=== PATIENT | female | born 1940 | race Caucasian/White ===

== ENCOUNTER 2017-04-26 07:11 | Inpatient (IN) | payer OTHER ==
--- NOTE | 2017-04-26 07:36 | PDOC ---
History of Present Illness <Heidy Yuen - Last Filed: 04/26/17 11:33> - General History Source: EMS, Old Records Exam Limitations: Dementia - History of Present Illness Initial Comments: 04/26/17 11:56 The patient is a 76 year old female, with a significant past medical history of hypertension, diabetes, chronic bronchitis, hypothyroidism, GERD, depression, Alzheimers, Schizophrenia, CAD, and COPD, who presents to the emergency department from [facility] after being found on the floor earlier this morning. Per EMS, patient was found on the floor s/p unwitnessed fall. It is unknown if patient sustained any head trauma or LOC. Per records, patient is on Heparin. Patients history is limited due to clinical condition. Allergies: NKDA PCP: Dr. Loyd <Lance Suarez - Last Filed: 04/26/17 11:57> - General Chief Complaint: Injury Stated Complaint: FALL Time Seen by Provider: 04/26/17 07:36 Past History - Past Medical History COPD: No Dementia: Yes GI Disorders: Yes (gerd,dysphania) HTN: Yes Psychiatric Problems: Yes (major depressive disorder,schizoprenia) Thyroid Disease: Yes (Hypo) - Surgical History Appendectomy: Yes Orthopedic Surgery: Yes (R Hip surgery, type unknown) - Suicide/Smoking/Psychosocial Hx Smoking History: Unknown if ever smoked Have you smoked in the past 12 months: No If you are a former smoker, when did you quit?: 2011 Information on smoking cessation initiated: No Hx Alcohol Use: No Drug/Substance Use Hx: No Substance Use Type: None Hx Substance Use Treatment: No <Heidy Yuen - Last Filed: 04/26/17 11:33> <Lance Suarez - Last Filed: 04/26/17 11:57> - Past Medical History Allergies/Adverse Reactions: Allergies Allergy/AdvReac Type Severity Reaction Status Date / Time No Known Allergies Allergy Verified 04/26/17 07:32 Home Medications: Ambulatory Orders Acetaminophen [Non-Aspirin Pain Relief] 650 mg PO PRN 04/26/17 Diphenhydramine [Benadryl 12.5 MG/5 ML Oral Solution -] 12.5 ml PO DAILY Famotidine 20 mg PO BID 04/26/17 Levothyroxine [Synthroid -] 250 mcg PO DAILY 04/26/17 Mirtazapine 5,000 units SQ BID 04/26/17 Polyethylene Glycol 3350 [Gavilax] 17 gm PO BID 04/26/17 Sennosides [Senna] 8.6 mg PO DAILY 04/26/17 Review of Systems - Review of Systems Able to Perform ROS?: No Comments:: 04/26/17 11:56 Patients history is limited due to clinical condition. <Lance Suarez - Last Filed: 04/26/17 11:57> *Physical Exam - Vital Signs Last Vital Signs Temp Pulse Resp BP Pulse Ox 98.3 F 97 H 18 144/60 100 04/26/17 07:21 04/26/17 07:21 04/26/17 07:21 04/26/17 07:21 04/26/17 07:21 <NassefDiliaa - Last Filed: 04/26/17 11:33> - Vital Signs Last Vital Signs Temp Pulse Resp BP Pulse Ox 98.3 F 97 H 18 144/60 100 04/26/17 07:21 04/26/17 07:21 04/26/17 07:21 04/26/17 07:21 04/26/17 07:21 - Physical Exam Comments: 04/26/17 11:57 GENERAL: Awake and alert, in no acute distress, responds to simple commands HEAD: No signs of trauma EYES: PERRLA, EOMI, sclera anicteric, conjunctiva clear ENT: Auricles normal inspection, nares patent, oropharynx clear without exudates. Moist mucosa NECK: Normal ROM, supple, no lymphadenopathy, JVD, or masses LUNGS: Breath sounds equal, clear to auscultation bilaterally. No wheezes, and no crackles HEART: Regular rate and rhythm, normal S1 and S2, no murmurs, rubs or gallops ABDOMEN: Soft, nontender, normoactive bowel sounds. No guarding, no rebound. No masses EXTREMITIES: contracted, grimaces when palpating hips b/l. 2+ DP pulses b/l BACK: No midline spinal tenderness in cervical/thoracic/lumbar region NEUROLOGICAL: Responds to simple commands, cranial nerves grossly intact SKIN: Warm, Dry, normal turgor, no rashes or lesions noted. <Lance Suarez - Last Filed: 04/26/17 11:57> ED Treatment Course - LABORATORY CBC & Chemistry Diagram: 04/26/17 08:41 04/26/17 08:41 <WilfridDiliajennie - Last Filed: 04/26/17 11:33> - LABORATORY CBC & Chemistry Diagram: 04/26/17 08:41 04/26/17 08:41 - ADDITIONAL ORDERS Additional order review: Laboratory Results 04/26/17 04/26/17 04/26/17 08:50 08:41 08:41 PT with INR 11.10 INR 0.98 PTT (Actin FS) 29.4 Sodium Potassium Chloride Carbon Dioxide Anion Gap BUN Creatinine Creat Clearance w eGFR Random Glucose Calcium Magnesium Total Bilirubin AST ALT Alkaline Phosphatase Creatine Kinase Cancelled Creatine Kinase Index CK-MB (CK-2) Troponin I B-Natriuretic Peptide Total Protein Albumin Blood Type O NEGATIVE Antibody Screen Negative 04/26/17 08:41 PT with INR INR PTT (Actin FS) Sodium 143 Potassium 3.9 Chloride 107 Carbon Dioxide 28 Anion Gap 8 BUN 36 H D Creatinine 0.9 Creat Clearance w eGFR > 60 Random Glucose 142 H D Calcium 9.2 Magnesium 1.8 Total Bilirubin 0.3 D AST 28 D ALT 34 D Alkaline Phosphatase 78 Creatine Kinase 252 H Creatine Kinase Index 1.1 CK-MB (CK-2) 2.999 Troponin I 0.04 B-Natriuretic Peptide 361.22 Total Protein 6.5 Albumin 3.3 L D Blood Type Antibody Screen 04/26/17 08:41 RBC 4.04 MCV 95.5 MCHC 33.0 RDW 12.0 D MPV 8.7 Neutrophils % 91.1 H D Lymphocytes % 2.5 L D Monocytes % 6.1 Eosinophils % 0.1 D Basophils % 0.2 - RADIOLOGY Radiograph Interpretation: 04/26/17 11:25 EXAM: CR Pelvis INTERPRETED BY: Dr. Ray REVIEWED BY: Dr. Yuen IMPRESSION: Displaced, complete subcapital fracture through the right femoral neck with significant impaction and moderate varus angulation. EXAM: CXR INTERPRETED BY: Dr. Wall REVIEWED BY: Dr. Yuen IMPRESSION: No acute pathology. More prominent chronic changes left hemithorax since prior studies of 2016. Old deformity left humerus. For more complete evaluation, further imaging with CT may be of help. EXAM: Head CT INTERPRETED BY: Dr. Sood REVIEWED BY: Dr. Yuen IMPRESSION: No significant interval change. Moderate atrophy and chronic microvascular ischemic changes without evidence of acute intracranial pathology. EXAM: CT Cervical spine INTERPRETED BY: Dr. Sood REVIEWED BY: Dr. Yuen IMPRESSION: The alignment is satisfactory. No gross fracture or subluxation is seen. No jumped facets are identified. <Lance Suarez - Last Filed: 04/26/17 11:57> Medical Decision Making - Medical Decision Making 04/26/17 08:00 76-year-old [facility] resident with multiple medical problems presents to the ED after she was found down on the ground. Vitals are unremarkable. History is difficult to obtain due to patient's advanced age and dementia. Unknown mechanical fall versus syncope. Will do a trauma workup, and obtain labs to evaluate for cardiac etiology of possible syncope. Will likely admit to observation. 04/26/17 11:33 Labs remarkable for mild leukocytosis to 11. BUN is elevated to 36, patient is possibly dehydrated. CTH and CT of the cervical spine with no acute pathology. Chest x-ray with no acute pathology. Pelvis film with right impacted femoral fracture. Dr. Rutledge is currently at the bedside evaluating the patient. The patient has been admitted to Dr. Loyd for further management. Case discussed in detail with admitting physician including history, physical exam and ancillary studies. Admitting physician has assumed care for the patient, will follow all pending diagnostics and will complete the evaluation and treatment. <Heidy Yuen - Last Filed: 04/26/17 11:33> - Medical Decision Making 04/26/17 11:24 First call placed to Dr. Loyd at 11:18. Awaiting call back. Case discussed with Dr. Loyd at 11:24. First call placed to Dr. Merino at 11:20. Awaiting call back Extension: [phone]. <Lance Suarez - Last Filed: 04/26/17 11:57> *DC/Admit/Observation/Transfer - Discharge Dispostion Admit: Yes - Attestations Physician Attestion: 04/26/17 11:36 I, Dr. Heidy Yuen MD, attest that this document has been prepared under my direction and personally reviewed by me in its entirety. I further attest, that it accurately reflects all work, treatment, procedures and medical decision -making performed by [facility]. <Heidy Yuen - Last Filed: 04/26/17 11:33> - Attestations Scribe Attestion: 04/26/17 11:23 Documentation prepared by Lance Suarez, acting as medical imaging tech for Heidy Yuen MD. <Lance Suarez - Last Filed: 04/26/17 11:57> Diagnosis at time of Disposition: Hip fracture - Discharge Dispostion Condition at time of disposition: Stable - Referrals Referrals: Trey Loyd MD [Primary Care Provider] - - Patient Instructions - Post Discharge Activity
[2017-04-26 07:54] VITALS: BMI 21.5
[2017-04-26 09:01] LABS: BASO % 0.2 % (0-2.0); EOS % 0.1 % (0-4.5); HEMATOCRIT 38.5 % (32.4-45.2); HEMOGLOBIN 12.7 GM/dL (10.7-15.3); LYMPH % 2.5 % (8-40); MCH 31.5 pg (25.7-33.7); MEAN CELL VOLUME 95.5 fl (80-96); MEAN PLT VOLUME 8.7 fl (7.5-11.1); MONO % 6.1 % (3.8-10.2); NEUT % 91.1 % (42.8-82.8); PLATELET COUNT 170 K/MM3 (134-434); RBC 4.04 M/mm3 (3.60-5.2)
[2017-04-26 09:21] LABS: INR 0.98 (0.82-1.09); PROTHROMBIN TIME (PATIENT) 11.1 SEC (9.98-11.88)
[2017-04-26 09:24] LABS: ACTIVATED PTT 29.4 SECONDS (26.9-34.4)
[2017-04-26 09:26] LABS: N-TERMINAL BNP 361.22 pg/ml (5-450)
[2017-04-26 10:01] LABS: ALBUMIN 3.3 g/dl (3.4-5.0); BILIRUBIN,TOTAL 0.3 mg/dL (0.2-1.0); BLOOD UREA NITROGEN 36 mg/dL (7-18); CALCIUM 9.2 mg/dL (8.5-10.1); CO2 28 mmol/L (21-32); CREATININE 0.9 mg/dL (0.55-1.02); GLUCOSE,RANDOM 142 mg/dL (74-106); MAGNESIUM 1.8 mg/dL (1.8-2.4); SGOT/AST 28 U/L (15-37); SGPT/ALT 34 U/L (12-78); TOT PROT 6.5 g/dl (6.4-8.2)
[2017-04-26 10:02] LABS: ALK PHOS 78 U/L (45-117)
[2017-04-26 10:21] LABS: ANION GAP 8 (8-16); CHLORIDE 107 mmol/L (98-107); POTASSIUM 3.9 mmol/L (3.5-5.1); SODIUM 143 mmol/L (136-145)
[2017-04-26] MEDS ORDERED: HYDROmorphone HCL CARPU-JECT 2 MG/1 ML DISP.SYRIN IVPUSH PRN (11:25)
[2017-04-26] MEDS ORDERED: PANTOPRAZOLE 40 MG TABLET (FP) PO SCH (11:30)
[2017-04-26] MEDS ORDERED: ACETAMINOPHEN 325 MG TABLET (FP) PO SCH (11:30)
[2017-04-26] MEDS ORDERED: D5-1/2NS+20 MEQ KCL - 20 MEQ/1,000 ML INFUS.BAG IV SCH (11:30)
[2017-04-26] MEDS ORDERED: HYDROmorphone HCL CARPU-JECT 1 MG/1 ML DISP.SYRIN ONE (11:50)
[2017-04-26] MEDS ORDERED: PANTOPRAZOLE 40 MG TABLET (FP) ONE (11:50)
[2017-04-26] MEDS ORDERED: HEPARIN NA (PORCINE) 5,000 UNITS/ML 1ML VIAL ONE (11:50)
--- NOTE | 2017-04-26 11:55 | CONSULT ---
Consult - text type - Consultation Consultation Note: FULL CONSULT DICTATED IMP: DISPLACED RIGHT FEMORAL NECK HIP FX PLAN: --> OR TOMORROW FOR RIGHT MIRZA
[2017-04-26] MEDS: HEPARIN NA (PORCINE) 5,000 UNITS/ML 1ML VIAL SQ SCH ×2 (12:22→22:41)
[2017-04-26] MEDS ORDERED: ACETAMINOPHEN 325 MG TABLET (FP) PO PRN ×2 (12:30→16:58)
[2017-04-26 12:58] LABS: URINE APPEARANCE CLEAR; URINE BILIRUBIN NEGATIVE (NEGATIVE); URINE BLOOD NEGATIVE (NEGATIVE); URINE COLOR YELLOW; URINE GLUCOSE (UA) NEGATIVE (NEGATIVE); URINE KETONE NEGATIVE (NEGATIVE); URINE LEUK ESTERASE NEGATIVE (NEGATIVE); URINE NITRITE NEGATIVE (NEGATIVE); URINE PROTEIN NEGATIVE (NEGATIVE); URINE UROBILINOGEN NEGATIVE mg/dL (0.2-1.0)
--- NOTE | 2017-04-26 13:53 | EKG ---
Test Reason : Blood Pressure : / mmHG Vent. Rate : 111 BPM Atrial Rate : 111 BPM P-R Int : 158 ms QRS Dur : 072 ms QT Int : 328 ms P-R-T Axes : 085 092 067 degrees QTc Int : 446 ms POOR DATA QUALITY, INTERPRETATION MAY BE ADVERSELY AFFECTED SINUS TACHYCARDIA RIGHTWARD AXIS ANTERIOR INFARCT , AGE UNDETERMINED ABNORMAL ECG WHEN COMPARED WITH ECG OF 08-OCT-2015 01:03, NO SIGNIFICANT CHANGE WAS FOUND Confirmed by KRUPA LAYTON MD ([id number]) on 04/26/2017 1:53:24 PM Referred By: Confirmed By:KRUPA LAYTON MD
--- NOTE | 2017-04-26 14:46 | CON.CARD ---
Consult Consult Specialty:: cardiology Referred by:: Evert Reason for Consultation:: Pre-op consultation - History of Present Illness Chief Complaint: Right hip fracture History of Present Illness: The patient is a 76-year-old female, with advanced dementia, senior living resident, diabetes, hypertension, coronary artery disease, COPD/bronchitis, schizophrenia, who was found on the floor (unwitnessed). The patient was found to have a right hip fracture. Surgery is being considered. The patient is supine in no apparent distress. She does not follow commands and does not answer any questions. She is alert. 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: Alzheimer's Cardio/Vascular: Yes: [facility] revealing mild CAD , no stents) Pulmonary: Yes: COPD, Other (left pneumothorax and likely hemothorax with rib fractures) Gastrointestinal: Yes: Other (esophageal food impaction, chart alludes to achalasia but [facility] cannot substantiate this) Endocrine: Yes: Hypothyroidism - Alcohol/Substance Use Hx Alcohol Use: No - Smoking History Smoking history: Former smoker Have you smoked in the past 12 months: No If you are a former smoker, when did you quit?: 2011 - Social History Usual Living Arrangement: With Child ADL: Family Assistance 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 Home Medications - Allergies Allergies/Adverse Reactions: Allergies Allergy/AdvReac Type Severity Reaction Status Date / Time No Known Allergies Allergy Verified 04/26/17 07:32 - Home Medications Home Medications: Ambulatory Orders Acetaminophen [Non-Aspirin Pain Relief] 650 mg PO Q6H PRN 04/26/17 Diphenhydramine [Benadryl 12.5 MG/5 ML Oral Solution -] 12.5 ml PO DAILY PRN Famotidine 20 mg PO BID 04/26/17 Heparin - 5,000 unit SQ BID 04/26/17 Levothyroxine [Synthroid -] 250 mcg PO DAILY 04/26/17 Mirtazapine 7.5 mg PO HS 04/26/17 Polyethylene Glycol 3350 [Gavilax] 17 gm PO BID 04/26/17 Sennosides [Senna] 8.6 mg PO HS 04/26/17 Review of Systems - Review of Systems Constitutional: reports: No Symptoms Eyes: reports: No Symptoms HENT: reports: No Symptoms Neck: reports: No Symptoms Cardiovascular: reports: No Symptoms Respiratory: reports: No Symptoms Gastrointestinal: reports: No Symptoms Genitourinary: reports: No Symptoms Breasts: reports: No Symptoms Reported Musculoskeletal: reports: Other (Right hip fracture) Integumentary: reports: No Symptoms Neurological: reports: No Symptoms Endocrine: reports: No Symptoms Hematology/Lymphatic: reports: No Symptoms Psychiatric: reports: No Symptoms Vital Signs: Vital Signs Temperature 97.8 F 04/26/17 13:58 Pulse Rate 84 04/26/17 13:58 Respiratory Rate 16 04/26/17 13:58 Blood Pressure 145/76 04/26/17 13:58 O2 Sat by Pulse Oximetry (%) 99 04/26/17 12:37 Constitutional: Yes: Well Nourished, No Distress, Calm Eyes: Yes: WNL, Conjunctiva Clear HENT: Yes: WNL, Atraumatic, Normocephalic Neck: Yes: WNL, Supple, Trachea Midline Respiratory: Yes: WNL, Regular, CTA Bilaterally Gastrointestinal: Yes: WNL, Normal Bowel Sounds, Soft Renal/: Yes: WNL Cardiovascular: Yes: WNL, Regular Rate and Rhythm, Tachycardia JVD: No Carotid Bruit: No PMI: Non-Displaced Heart Sounds: Yes: S1, S2 Murmur: Yes: Systolic Murmur, Grade 2 Musculoskeletal: No: WNL (Right hip pain) Extremities: Yes: Other (Right hip pain) Edema: No Peripheral Pulses WNL: Yes Integumentary: Yes: WNL Neurological: Yes: Other (Severe dementia, nonverbal,) - Other Data Labs, Other Data: CBC, BMP 04/26/17 08:41 04/26/17 08:41 INR, PTT INR 0.98 (0.82-1.09) 04/26/17 08:41 Troponin, BNP 04/26/17 04/26/17 08:41 13:23 Troponin I 0.04 0.05 B-Natriuretic Peptide 361.22 Troponin, BNP 04/26/17 04/26/17 08:41 13:23 Troponin I 0.04 0.05 B-Natriuretic Peptide 361.22 Assessment/Plan 76-year-old female, senior living resident, with significant dementia, and multiple medical problems, who was found on the floor, and sustained a right hip fracture. Surgery is being considered. There is no evidence of ischemia nor acute coronary syndrome. No CHF. The ECG shows sinus tachycardia without any acute changes. I believe that the patient is medically optimized for right hip surgery. There is no need for further cardiac workup in preparation for surgery. Please proceed with surgery, as deemed necessary. Do not hesitate to call us PRN.
--- NOTE | 2017-04-26 16:17 | HP ---
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, Dementia Cardiovascular: Yes: CAD ([facility] revealing mild CAD , no stents) Pulmonary: Yes: COPD, Other (left pneumothorax and likely hemothorax with rib fractures) Gastrointestinal: Yes: Other (esophageal food impaction, chart alludes to achalasia but [facility] cannot substantiate this) Endocrine: Yes: Hypothyroidism - Smoking History Smoking history: Former smoker Have you smoked in the past 12 months: No If you are a former smoker, when did you quit?: 2012 - Alcohol/Substance Use Hx Alcohol Use: No - Social History ADL: Family Assistance 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 Home Medications - Allergies Allergies/Adverse Reactions: Allergies Allergy/AdvReac Type Severity Reaction Status Date / Time No Known Allergies Allergy Verified 04/26/17 07:32 - Home Medications Home Medications: Ambulatory Orders Acetaminophen [Non-Aspirin Pain Relief] 650 mg PO Q6H PRN 04/26/17 Diphenhydramine [Benadryl 12.5 MG/5 ML Oral Solution -] 12.5 ml PO DAILY PRN Famotidine 20 mg PO BID 04/26/17 Heparin - 5,000 unit SQ BID 04/26/17 Levothyroxine [Synthroid -] 250 mcg PO DAILY 04/26/17 Mirtazapine 7.5 mg PO HS 04/26/17 Polyethylene Glycol 3350 [Gavilax] 17 gm PO BID 04/26/17 Sennosides [Senna] 8.6 mg PO HS 04/26/17 Review of Systems - Review of Systems Constitutional: reports: No Symptoms Eyes: reports: No Symptoms HENT: reports: No Symptoms Neck: reports: No Symptoms Cardiovascular: reports: No Symptoms Respiratory: reports: No Symptoms Gastrointestinal: reports: No Symptoms Genitourinary: reports: No Symptoms Breasts: reports: No Symptoms Reported Musculoskeletal: reports: Joint Pain Integumentary: reports: No Symptoms Neurological: reports: No Symptoms Endocrine: reports: No Symptoms Hematology/Lymphatic: reports: No Symptoms Psychiatric: reports: No Symptoms Physical Examination Vital Signs: Vital Signs Temperature 97.8 F 04/26/17 13:58 Pulse Rate 84 04/26/17 13:58 Respiratory Rate 16 04/26/17 13:58 Blood Pressure 145/76 04/26/17 13:58 O2 Sat by Pulse Oximetry (%) 99 04/26/17 12:37 Constitutional: Yes: Well Nourished, No Distress, Calm Cardiovascular: Yes: Tachycardia Respiratory: Yes: Regular Gastrointestinal: Yes: Normal Bowel Sounds, Soft Musculoskeletal: Yes: Joint Stiffness Edema: No Peripheral Pulses WNL: Yes Integumentary: Yes: WNL Neurological: Yes: Alert, Confusion, Pre-Existing Deficit Labs: CBC, BMP 04/26/17 08:41 04/26/17 08:41 Imaging - Results X-ray: Report Reviewed Cat Scan: Report Reviewed Problem List - Problems (1) Fall Code(s): W19.XXXA - UNSPECIFIED FALL, INITIAL ENCOUNTER (2) Hip fracture Assessment/Plan: Hip Xray shows : Displaced, complete subcapital fracture through the right femoral neck with significant impaction and moderate varus angulation. -For OR in AM -Cleared by Cardiology -pain management -NPO after midnight -hold heparin after tonights dose Code(s): S72.009A - FRACTURE OF UNSP PART OF NECK OF UNSP FEMUR, INIT (3) Dementia Code(s): F03.90 - UNSPECIFIED DEMENTIA WITHOUT BEHAVIORAL DISTURBANCE Assessment/Plan see problem list
--- NOTE | 2017-04-26 18:32 | CONS ---
DATE OF CONSULTATION: 04/26/2017 Patient is a 76-year-old female, resident of a assisted, with dementia, status post fall in the assisted and complaining of pain in her right hip. The patient has already had a left hip hemiarthroplasty in the past. PHYSICAL EXAMINATION: She has marked increased pain with any passive range of motion of her right hip. The right hip is somewhat shortened in the external rotation position. Some contracture of her right knee of about 15 degrees. Good motion of the ankle and toes. Calf is soft and nontender. X-rays showed displaced right femoral neck fracture. IMPRESSION: Right displaced femoral neck fracture. PLAN: The patient will be booked for a right hip hemiarthroplasty after medical optimization. MACK MEDINA M.D. AMBAR/[id number]
[2017-04-26] MEDS ORDERED: RANITIDINE HCL 150 MG TABLET (FP) PO SCH (22:00)
[2017-04-26] MEDS ORDERED: POLYETHYLENE GLYCOL 3350 119 GM BTL PO SCH (22:00)
[2017-04-26] MEDS ORDERED: MIRTAZAPINE 15 MG TABLET (FP) PO SCH (22:00)
[2017-04-27] MEDS ORDERED: ceFAZolin SODIUM 1 GM VIAL ONE ×2 (07:21→08:51)
[2017-04-27] MEDS ORDERED: MIDAZOLAM HCL 2 MG/2 ML SINGLE DOSE VIAL ONE (08:44)
[2017-04-27] MEDS ORDERED: ceFAZolin SODIUM 1 GM VIAL IVPB ONE (08:51)
[2017-04-27] MEDS ORDERED: PHENYLEPHRINE HCL 10 MG/1 ML SINGLE DOSE VIAL ONE (09:10)
--- NOTE | 2017-04-27 09:49 | OP ---
Operative Note - Note: Operative Date: 04/27/17 Pre-Operative Diagnosis: right hip femoral neck fracture Operation: right hip hemiarthroplasty Implants: Ophelia Accolade-II Bipolar 46mm head, standard neck, #3 femoral stem Surgeon: Zelalem Merino Rn Hemo Dialysis: [facility] Anesthesiologist/ADMISSIONS MANAGER: Tony Watt Anesthesia: Spinal, MAC Specimens Removed: right femoral head Estimated Blood Loss (mls): 75 Drains, Volume Out (mls): 0 Blood Volume Replaced (mls): 0 Fluid Volume Replaced (mls): 700 Operative Report Dictated: Yes
[2017-04-27] MEDS ORDERED: LEVOTHYROXINE PO SCH (10:00)
[2017-04-27] MEDS ORDERED: SENNOSIDES 8.6MG TABLET (FP) PO SCH (10:00)
--- NOTE | 2017-04-27 10:06 | PN ---
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, Physician Chief Complaint: s/p fall, right hip fracture History of Present Illness: patient in the OR right now - Current Medication List Current Medications: Active Medications Acetaminophen (Tylenol -) 650 mg PO Q6H PRN Enoxaparin Sodium (Lovenox -) 30 mg SQ DAILY@0800 [facility] Hydromorphone HCl (Dilaudid Injection -) 0.5 mg IVPUSH Q4H PRN PRN Reason: PAIN Last Admin: 04/26/17 11:50 Dose: 0.5 mg Potassium Chloride/Dextrose/Sod Cl (D5-1/2ns+20 Meq Kcl -) 20 meq in 1,000 mls @ 42 mls/hr IV ASDIR [facility] Last Admin: 04/26/17 13:15 Dose: 42 mls/hr Cefazolin Sodium (Ancef -) 1 gm in 10 mls @ 120 mls/hr IVPUSH Q8H [facility] Stop: 04/28/17 00:04 Levothyroxine Sodium (Synthroid -) 250 mcg PO DAILY [facility] Mirtazapine (Remeron -) 7.5 mg PO HS [facility] Last Admin: 04/26/17 22:41 Dose: 7.5 mg Pantoprazole Sodium (Protonix -) 40 mg PO DAILY [facility] Last Admin: 04/26/17 12:21 Dose: Not Given Polyethylene Glycol (Miralax (For Daily Use) -) 17 gm PO BID [facility] Last Admin: 04/26/17 22:41 Dose: 17 gm Ranitidine HCl (Zantac -) 150 mg PO BID [facility] Last Admin: 04/26/17 22:40 Dose: 150 mg Senna (Senna -) 1 tab PO DAILY [facility] - Objective Vital Signs: Vital Signs Temperature 100.1 F H 04/27/17 06:00 Pulse Rate 95 H 04/27/17 06:00 Respiratory Rate 20 04/27/17 06:00 Blood Pressure 137/74 04/27/17 06:00 O2 Sat by Pulse Oximetry (%) 99 04/26/17 12:37 Labs: CBC, BMP 04/26/17 08:41 04/26/17 08:41 INR, PTT INR 0.98 (0.82-1.09) 04/26/17 08:41 Problem List - Problems (1) Fall Code(s): W19.XXXA - UNSPECIFIED FALL, INITIAL ENCOUNTER (2) Hip fracture Assessment/Plan: Hip Xray shows : Displaced, complete subcapital fracture through the right femoral neck with significant impaction and moderate varus angulation. -in OR -Cleared by Cardiology -pain management Code(s): S72.009A - FRACTURE OF UNSP PART OF NECK OF UNSP FEMUR, INIT (3) Dementia Code(s): F03.90 - UNSPECIFIED DEMENTIA WITHOUT BEHAVIORAL DISTURBANCE (4) S/P hip hemiarthroplasty Assessment/Plan: -right hip -start AC as permitted by Surgery -pain management Code(s): Z96.649 - PRESENCE OF UNSPECIFIED ARTIFICIAL HIP JOINT Assessment/Plan see problem list
[2017-04-27] MEDS ORDERED: HYDROmorphone HCL CARPU-JECT 2 MG/1 ML DISP.SYRIN IVPUSH PRN (10:33)
[2017-04-27] MEDS ORDERED: ACETAMINOPHEN 325 MG TABLET (FP) PO PRN (10:33)
[2017-04-27 10:51] LABS: HEMOGLOBIN 11.5 GM/dL (10.7-15.3); MCH 31.2 pg (25.7-33.7); MCHC 32.8 g/dl (32.0-36.0); MEAN CELL VOLUME 95.2 fl (80-96); MEAN PLT VOLUME 8.7 fl (7.5-11.1); PLATELET COUNT 146 K/MM3 (134-434); RBC 3.68 M/mm3 (3.60-5.2); WHITE BLOOD COUNT 8.2 K/mm3 (4.0-10.0)
[2017-04-27 10:57] LABS: EOS % 0.4 % (0-4.5); LYMPH % 6.1 % (8-40); MONO % 8.6 % (3.8-10.2); NEUT % 84.7 % (42.8-82.8)
[2017-04-27 11:19] LABS: ALBUMIN 2.7 g/dl (3.4-5.0); ANION GAP 6 (8-16); BILIRUBIN,TOTAL 0.4 mg/dL (0.2-1.0); BLOOD UREA NITROGEN 29 mg/dL (7-18); CALCIUM 8.6 mg/dL (8.5-10.1); CHLORIDE 108 mmol/L (98-107); CO2 28 mmol/L (21-32); CREATININE 0.8 mg/dL (0.55-1.02); GLUCOSE,RANDOM 107 mg/dL (74-106); SGOT/AST 25 U/L (15-37); SGPT/ALT 28 U/L (12-78); SODIUM 142 mmol/L (136-145); TOT PROT 5.7 g/dl (6.4-8.2)
[2017-04-27] MEDS: D5-1/2NS+20 MEQ KCL - 20 MEQ/1,000 ML INFUS.BAG IV SCH (11:19)
[2017-04-27 11:20] LABS: ALK PHOS 62 U/L (45-117)
[2017-04-27] MEDS ORDERED: CEFAZOLIN 1 GM PUSH 1 GM/10 ML DISP.SYRIN IVPUSH SCH (16:00)
[2017-04-27] MEDS ORDERED: PT OWN MED DRAWER 7, Y5N ONE (16:27)
[2017-04-27] MEDS: CEFAZOLIN 1 GM PUSH 1 GM/10 ML DISP.SYRIN IVPUSH SCH (16:35)
[2017-04-27] MEDS: MIRTAZAPINE 15 MG TABLET (FP) PO SCH (22:02)
[2017-04-27] MEDS: RANITIDINE HCL 150 MG TABLET (FP) PO SCH (22:02)
[2017-04-27] MEDS: POLYETHYLENE GLYCOL 3350 119 GM BTL PO SCH (22:03)
[2017-04-28] MEDS: CEFAZOLIN 1 GM PUSH 1 GM/10 ML DISP.SYRIN IVPUSH SCH (00:15)
[2017-04-28] MEDS ORDERED: PT OWN MED DRAWER 7, Y5N ONE (01:16)
[2017-04-28] MEDS ORDERED: ENOXAPARIN NA (PORCINE) 30 MG/0.3 ML DISP.SYRIN SQ SCH (08:00)
[2017-04-28] MEDS: ENOXAPARIN NA (PORCINE) 30 MG/0.3 ML DISP.SYRIN SQ SCH ×2 (08:37→11:01)
[2017-04-28 08:44] LABS: HEMATOCRIT 34.3 % (32.4-45.2); HEMOGLOBIN 11.4 GM/dL (10.7-15.3); MCH 31.4 pg (25.7-33.7); MCHC 33.2 g/dl (32.0-36.0); MEAN CELL VOLUME 94.6 fl (80-96); MEAN PLT VOLUME 9.4 fl (7.5-11.1); PLATELET COUNT 147 K/MM3 (134-434); RBC 3.62 M/mm3 (3.60-5.2); RDW 12.3 % (11.6-15.6); WHITE BLOOD COUNT 9.7 K/mm3 (4.0-10.0)
--- NOTE | 2017-04-28 08:48 | SPEC ---
DATE OF OPERATION: 04/27/2017 PREOPERATIVE DIAGNOSIS: Right hip femoral neck fracture. POSTOPERATIVE DIAGNOSIS: Right hip femoral neck fracture. PROCEDURE: Right hip hemiarthroplasty. SURGEON: Zelalem Merino M.D. GEOPHYSICS TEACHER: Ricky Mehta ANESTHESIOLOGIST: Tony Watt MD ANESTHESIA: Spinal anesthesia with sedation. DRAINS: None. COMPLICATIONS: None. SPECIMEN: Right femoral head. BLOOD LOSS: 75 mL. BLOOD GIVEN: None. FLUID REPLACEMENT: 700 mL Plasma-Lyte. This patient is a 76-year-old female with a preoperative diagnosis of a displaced right femoral neck fracture. She also has dementia. She is a marginal ambulator. She is noncompliant with preoperative instructions. The patient and the family understand the potential risks, complications, alternatives, and benefits of surgery versus nonsurgical treatment. The patient and his/her family elected to pursue this procedure. The patient was brought to the operating room, peripheral IV placed, IV sedation given, spinal anesthesia induced, IV sedation was given. The patient was placed into the fracture hip hemiarthroplasty table in the left lateral decubitus position with the right hip up towards the ceiling. Right lower extremity is prepped and draped in sterile fashion and standard posterolateral approach marked out with marking pen. The incision was made with a number 10 scalpel blade. Subcutaneous hemostasis was achieved with a Bovie cautery. Dissection then down through the adipose layers to the lateral fascia. This was incised longitudinally with the Bovie, and the Charnley retractor was placed into the wound. We then put the right leg into position of internal rotation which put tension on the short external rotators. The short external rotators and the posterior capsule were incised with a Bovie cautery. We were then able to dislocate the hip, bringing the broken femoral neck out through the wound. We put on the Ophelia accolade II femoral neck cutting guide using the Bovie to pamela our line and used the oscillating saw to cut the appropriate level. This level was at the level of the lesser trochanter where the fracture line extended to. This piece of bone was removed, and this exposed the femoral head. We were unable to get access to the head, it was so tight, and therefore a T-capsulotomy was made with the Bovie for later repair. This allowed us to gain access to the femoral head. The corkscrew was placed into the femoral head with the mallet and it was taken out. It was a 46-mm head. The area was copiously irrigated and washed out, some small bone fragments removed. The left in place on purpose resection. Next we trialed 46 femoral head. Next, the femoral neck was exposed with the [id number] retractor and the Suzanne retractor and first using a wash box operator the hand reamers and the hand broaches, we put a size 6 femoral broach, it seemed to fit quite well, and there was no rotational instability. The calcar reamer was then placed over the broach, and a standard neck with a 46 head was placed. The hip was reduced; it had excellent suction, stability, leg length, and overall was quite happy with it in all planes. There was no instability, it was difficult to dislocate. We then were able to dislocate it, take out the trial prosthesis, irrigate the canal, and put in the real Aston accolade II number 3 cementless Press-Fit femoral stem. I was able to Press-Fit it with a mallet down to the appropriate depth, this on the standard neck, and a 46 bipolar head was hit on with the mallet over the cris taper, it was held in place. I tried to pull off, I could not. I reduced it; it had excellent reduction, stability in all planes. Leg length again was checked and seemed to be excellent. The area was irrigated and washed out. The capsule was then closed with number 1 Tycron suture. The fascia was then closed with number 1 Tycron suture. Deep adipose layer also closed with number 1 Tycron, 2-0 Vicryl suture used to close the deep dermal layer, and final skin reapproximation was done with a running subcuticular 3-0 V-Loc suture. The area was then washed and dried and covered with Dermabond skin glue and Aquacel dressing. Total operative time was about 45 minutes. Fluid replacement was 1000 mL Plasma-Lyte. Blood loss was 75 mL. The patient was completely stable throughout the case. The patient was brought down out of the lateral decubitus position into the supine position and transferred to a stretcher. X-rays were taken. The patient was brought to the ambulatory recovery room in stable condition. The patient was completely stable throughout the case. There was minimal blood loss. There were no complications. Deepti HUMMEL/[id number]
[2017-04-28 09:11] LABS: ANION GAP 10 (8-16); BLOOD UREA NITROGEN 31 mg/dL (7-18); CALCIUM 8.6 mg/dL (8.5-10.1); CHLORIDE 108 mmol/L (98-107); CO2 25 mmol/L (21-32); CREATININE 0.7 mg/dL (0.55-1.02); GLUCOSE,RANDOM 116 mg/dL (74-106); POTASSIUM 3.6 mmol/L (3.5-5.1); SODIUM 143 mmol/L (136-145)
[2017-04-28] MEDS ORDERED: FLU VACCINE QUAD 60 MCG/0.5 ML (MDV 17-18) IM ONE (10:15)
--- NOTE | 2017-04-28 10:22 | PN ---
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 (short form) - Note 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: POD #1 - s/p right hip hemiarthroplasty under spinal anesthesia. VSS. Pt. doing well, sitting up comfortably in chair. No apparent anesthetic complications noted. Continue current care.
--- NOTE | 2017-04-28 10:29 | PN ---
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 (short form) - Note 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: Ortho Pt seen and examined s/p right hip deb pod #1 Selected Entries 04/28/17 05:31 Temperature 99 F Pulse Rate 88 Respiratory 20 Rate Blood Pressure 133/77 Laboratory Tests 04/28/17 07:00 WBC 9.7 Hgb 11.4 Hct 34.3 Plt Count 147 dressing c/d/i, calf soft, nt nvi a/p PT if able wbat hip precautions dvt ppx pain control d/c planning
--- NOTE | 2017-04-28 10:49 | DS ---
Physical Examination Vital Signs: Vital Signs Temperature 99 F 04/28/17 05:31 Pulse Rate 88 04/28/17 05:31 Respiratory Rate 20 04/28/17 05:31 Blood Pressure 133/77 04/28/17 05:31 O2 Sat by Pulse Oximetry (%) 94 L 04/27/17 21:00 Constitutional: Yes: Well Nourished, No Distress, Calm Cardiovascular: Yes: Regular Rate and Rhythm Respiratory: Yes: Regular Gastrointestinal: Yes: Normal Bowel Sounds, Soft Musculoskeletal: Yes: WNL Extremities: Yes: WNL Edema: No Peripheral Pulses WNL: Yes Neurological: Yes: Alert, Pre-Existing Deficit Psychiatric: Yes: Alert Labs: CBC, BMP 04/28/17 07:00 04/28/17 07:00 Discharge Summary Reason For Visit: FRACTURE OF HIP Current Active Problems Fall (Acute) Hip fracture (Acute) S/P hip hemiarthroplasty (Acute) S/P hip hemiarthroplasty (Acute) S/P total hip arthroplasty (Acute) Hospital Course: The patient is a 76 year old female, with a significant past medical history of hypertension, diabetes, chronic bronchitis, hypothyroidism, GERD, depression, Alzheimers, Schizophrenia, CAD, and COPD, who presents to the emergency department from senior living after being found on the floor earlier this morning. Per EMS, patient was found on the floor s/p unwitnessed fall. It is unknown if patient sustained any head trauma or LOC. Per records, patient is on Heparin. Patients history is limited due to clinical condition. Pre-Operative Diagnosis: right hip femoral neck fracture Operation: right hip hemiarthroplasty Implants: Ophelia Accolade-II Bipolar 46mm head, standard neck, #3 femoral stem Surgeon: Zelalem Merino -Weight bearing as tolerated -hip precautions -dvt prophylaxis Condition: Stable - Instructions Referrals: Trey Loyd MD [Primary Care Provider] - Disposition: RESIDENTIAL FACILITY - Home Medications Comprehensive Discharge Medication List: Ambulatory Orders Acetaminophen [Non-Aspirin Pain Relief] 650 mg PO Q6H PRN 04/26/17 Diphenhydramine [Benadryl 12.5 MG/5 ML Oral Solution -] 12.5 ml PO DAILY PRN Famotidine 20 mg PO BID 04/26/17 Heparin - 5,000 unit SQ BID 04/26/17 Levothyroxine [Synthroid -] 250 mcg PO DAILY 04/26/17 Mirtazapine 7.5 mg PO HS 04/26/17 Polyethylene Glycol 3350 [Gavilax] 17 gm PO BID 04/26/17 Sennosides [Senna] 8.6 mg PO HS 04/26/17 Pantoprazole Sodium [Protonix -] 40 mg PO DAILY tablet.ec 04/28/17 Tramadol HCl 50 mg PO TID PRN #90 tablet MDD 3 04/28/17
[2017-04-28] MEDS: PANTOPRAZOLE 40 MG TABLET (FP) PO SCH (11:02)
[2017-04-28] MEDS: SENNOSIDES 8.6MG TABLET (FP) PO SCH (11:02)
[2017-04-28] MEDS: LEVOTHYROXINE NA 125 MCG TABLET (FP) PO SCH (11:02)
[2017-04-28] MEDS: POLYETHYLENE GLYCOL 3350 119 GM BTL PO SCH ×2 (11:02→22:17)
[2017-04-28] MEDS: RANITIDINE HCL 150 MG TABLET (FP) PO SCH ×2 (11:03→21:49)
[2017-04-28] MEDS: D5-1/2NS+20 MEQ KCL - 20 MEQ/1,000 ML INFUS.BAG IV SCH ×2 (11:03→21:48)
--- NOTE | 2017-04-28 14:48 | PATH ---
Surgical Pathology Report Patient Name: KIMBER WARD [facility]. Rec. #: [id number] /Age/Gender: 1940 (Age: 76) / F Account: [id number] Location: [address] [place] [address]/[facility] Taken: 04/27/2017 Received: 04/27/2017 Reported: 04/28/2017 Physicians: Zelalem Merino M.D. Specimen(s) Received FEMORAL HEAD RIGHT Clinical History Fracture of right hip Final Diagnosis BONE, RIGHT FEMORAL HEAD, REPLACEMENT: BONE WITH INTERSTITIAL HEMORRHAGE CONSISTENT WITH FRACTURE. Electronically Signed Javier Lau M.D. Gross Description Received in formalin, labeled "right femoral head," is a 4.4 x 4.4 x 3.7 cm. femoral head with no femoral neck attached. The margin of resection is red-brown, jagged and hemorrhagic. No areas of eburnation are identified. The articular surface is brody-yellow and focally granular. The underlying trabecular bone is yellow, hard and focally hemorrhagic. A guest service representative section is submitted in one cassette, following decalcification. 04/27/2017 [facility]04/27/2017
[2017-04-28] MEDS: MIRTAZAPINE 15 MG TABLET (FP) PO SCH (21:49)
[2017-04-28] MEDS ORDERED: HYDROmorphone HCL CARPU-JECT 2 MG/1 ML DISP.SYRIN IVPB PRN (21:50)
[2017-04-29] MEDS: LEVOTHYROXINE NA 125 MCG TABLET (FP) PO SCH (06:12)
[2017-04-29 08:06] LABS: HEMATOCRIT 31.9 % (32.4-45.2); HEMOGLOBIN 10.3 GM/dL (10.7-15.3); MCH 30.8 pg (25.7-33.7); MCHC 32.4 g/dl (32.0-36.0); MEAN CELL VOLUME 95.1 fl (80-96); MEAN PLT VOLUME 8.9 fl (7.5-11.1); PLATELET COUNT 160 K/MM3 (134-434); RBC 3.35 M/mm3 (3.60-5.2); RDW 12.3 % (11.6-15.6); WHITE BLOOD COUNT 8.4 K/mm3 (4.0-10.0)
[2017-04-29] MEDS: PANTOPRAZOLE 40 MG TABLET (FP) PO SCH (09:00)
[2017-04-29] MEDS: SENNOSIDES 8.6MG TABLET (FP) PO SCH (09:00)
[2017-04-29] MEDS: ENOXAPARIN NA (PORCINE) 30 MG/0.3 ML DISP.SYRIN SQ SCH (09:00)
[2017-04-29] MEDS: RANITIDINE HCL 150 MG TABLET (FP) PO SCH (09:01)
[2017-04-29] MEDS: POLYETHYLENE GLYCOL 3350 119 GM BTL PO SCH (09:01)
--- NOTE | 2017-04-29 10:08 | DS ---
Physical Examination Vital Signs: Vital Signs Temperature 99.0 F 04/29/17 05:57 Pulse Rate 88 04/29/17 05:57 Respiratory Rate 18 04/29/17 05:57 Blood Pressure 138/76 04/29/17 05:57 O2 Sat by Pulse Oximetry (%) 95 04/28/17 21:00 Cardiovascular: Yes: S1, S2 Respiratory: Yes: Regular, CTA Bilaterally Gastrointestinal: Yes: Normal Bowel Sounds, Soft Labs: CBC, BMP 04/29/17 07:15 04/28/17 07:00 Discharge Summary Reason For Visit: FRACTURE OF HIP Current Active Problems Fall (Acute) Hip fracture (Acute) S/P hip hemiarthroplasty (Acute) S/P hip hemiarthroplasty (Acute) S/P total hip arthroplasty (Acute) Hospital Course: The patient is a 76 year old female, with a significant past medical history of hypertension, diabetes, chronic bronchitis, hypothyroidism, GERD, depression, Alzheimers, Schizophrenia, CAD, and COPD, who presents to the emergency department from skilled nursing after being found on the floor earlier this morning. Per EMS, patient was found on the floor s/p unwitnessed fall. It is unknown if patient sustained any head trauma or LOC. Per records, patient is on Heparin. Patients history is limited due to clinical condition. Pre-Operative Diagnosis: right hip femoral neck fracture Operation: right hip hemiarthroplasty Implants: [place] Accolade-II Bipolar 46mm head, standard neck, #3 femoral stem Surgeon: Zelalem Merino -Weight bearing as tolerated -hip precautions -dvt prophylaxis Condition: Stable - Instructions Referrals: Trey Loyd MD [Primary Care Provider] - Disposition: LONG TERM FACILITY - Home Medications Comprehensive Discharge Medication List: Ambulatory Orders Acetaminophen [Non-Aspirin Pain Relief] 650 mg PO Q6H PRN 04/26/17 Diphenhydramine [Benadryl 12.5 MG/5 ML Oral Solution -] 12.5 ml PO DAILY PRN Famotidine 20 mg PO BID 04/26/17 Heparin - 5,000 unit SQ BID 04/26/17 Levothyroxine [Synthroid -] 250 mcg PO DAILY 04/26/17 Mirtazapine 7.5 mg PO HS 04/26/17 Polyethylene Glycol 3350 [Gavilax] 17 gm PO BID 04/26/17 Sennosides [Senna] 8.6 mg PO HS 04/26/17 Pantoprazole Sodium [Protonix -] 40 mg PO DAILY tablet.ec 04/28/17 Tramadol HCl 50 mg PO TID PRN #90 tablet MDD 3 04/28/17
[2017-04-29 12:32] VITALS: BP 127/57; PULSE 90; TEMP 97.4
== END 2017-04-29 12:05 | DRG 470 ==
LOC: JER 07:11 → JERBED 11:36 → J6S 16:39
PROVIDERS: ADMIT Family Medicine; ATTEND Family Medicine
PROC: 0SRR0JZ Replacement of Right Hip Joint, Femoral Surface with Synthetic Substitute, Open Approach (ICD-10-PCS; principal; 2017-04-27 07:30)
DX: S72.012A Unspecified intracapsular fracture of left femur, initial encounter for closed fracture (principal); F20.89 Other schizophrenia; I10 Essential (primary) hypertension; E11.9 Type 2 diabetes mellitus without complications; E03.9 Hypothyroidism, unspecified; K21.9 Gastro-esophageal reflux disease without esophagitis; F32.89 Other specified depressive episodes; G30.8 Other Alzheimer's disease; F02.80 Dementia in other diseases classified elsewhere, unspecified severity, without behavioral disturbance, psychotic disturbance, mood disturbance, and anxiety; I25.10 Atherosclerotic heart disease of native coronary artery without angina pectoris; J44.9 Chronic obstructive pulmonary disease, unspecified; R49.0 Dysphonia; R00.0 Tachycardia, unspecified; Z87.891 Personal history of nicotine dependence; W18.39XA Other fall on same level, initial encounter; Y93.89 Activity, other specified; Y92.89 Other specified places as the place of occurrence of the external cause; Y99.8 Other external cause status; Z79.84 Long term (current) use of oral hypoglycemic drugs
CPT/HCPCS: 36415; 70450-TC; 71010-TC; 72125-TC; 72170-TC; 73502-TC-RT; 80048; 80053; 81003; 82550; 82553; 83735; 83880; 84484; 85025; 85027; 85610; 85730; 86850; 86900; 86901; 87086; 88305-TC; 88311-TC; 90688; 93005; 93010; 94760; 97116-GP; 97161-GP; 99284-25; G0008; J1644

== ENCOUNTER 2017-06-15 14:04 | Inpatient (IN) | payer OTHER ==
[2017-06-15 14:51] LABS: BASO % 0.3 % (0-2.0); EOS % 3.4 % (0-4.5); HEMATOCRIT 36.9 % (32.4-45.2); HEMOGLOBIN 11.8 GM/dL (10.7-15.3); LYMPH % 18.7 % (8-40); MCH 29.8 pg (25.7-33.7); MCHC 31.9 g/dl (32.0-36.0); MEAN CELL VOLUME 93.5 fl (80-96); MONO % 10.7 % (3.8-10.2); NEUT % 66.9 % (42.8-82.8); PLATELET COUNT 276 K/MM3 (134-434); RBC 3.94 M/mm3 (3.60-5.2); RDW 14.2 % (11.6-15.6); WHITE BLOOD COUNT 5.9 K/mm3 (4.0-10.0)
[2017-06-15] MEDS: SODIUM CHLORIDE 1,000 ML IV SCH (14:56)
--- NOTE | 2017-06-15 15:04 | PDOC ---
History of Present Illness - General History Source: EMS, [facility] Records Exam Limitations: Clinical Condition, Dementia - History of Present Illness Initial Comments: 06/15/17 15:27 The patient is a 76 year old female resident from snf, with a significant past medical history of GERD, COPD, Hypothyroidism, Dementia, R hip fracture, Dementia, Depression who presents to the emergency department with altered mental status today. As per nursing staff, at 13:30, patient suddenly was unable to feed herself and was leaning to the left in her seat. Upon evaluation, patient is a poor historian and is unable to provide history. Patients vital signs significant for 100.3 rectal temperature and 93 HR. Allergies: NKA Past surgical history: Appendectomy Social history: None PCP: Dr. Loyd <Sandra Stanley - Last Filed: 06/15/17 15:26> <Cl Ramos - Last Filed: 06/15/17 18:17> <Valerie Dubois - Last Filed: 06/15/17 19:17> - General Chief Complaint: CVA/TIA Stated Complaint: TIA/CVA Time Seen by Provider: 06/15/17 14:11 Past History <Sandra Stanley - Last Filed: 06/15/17 15:26> - Past Medical History COPD: Yes Dementia: Yes GI Disorders: Yes (gerd,dysphania) HTN: Yes Psychiatric Problems: Yes (major depressive disorder,schizoprenia) Thyroid Disease: Yes (Hypo) - Surgical History Appendectomy: Yes Orthopedic Surgery: Yes (R Hip surgery) - Suicide/Smoking/Psychosocial Hx Smoking History: Unknown if ever smoked Have you smoked in the past 12 months: No If you are a former smoker, when did you quit?: 2011 Information on smoking cessation initiated: No Hx Alcohol Use: No Drug/Substance Use Hx: No Substance Use Type: None Hx Substance Use Treatment: No <lC Ramos - Last Filed: 06/15/17 18:17> <Valerie Dubois - Last Filed: 06/15/17 19:17> - Past Medical History Allergies/Adverse Reactions: Allergies Allergy/AdvReac Type Severity Reaction Status Date / Time No Known Allergies Allergy Verified 04/26/17 07:32 Home Medications: Ambulatory Orders Acetaminophen 650 mg PO Q6H PRN 06/15/17 Diphenhydramine HCl [Benadryl -] 12.5 mg PO DAILY PRN 06/15/17 Famotidine 20 mg PO BID 06/15/17 Heparin - 5,000 unit SQ BID 06/15/17 Levothyroxine [Synthroid -] 250 mcg PO DAILY 06/15/17 Mirtazapine 7.5 mg PO HS 06/15/17 Polyethylene Glycol 3350 [Clearlax] 17 gm PO BID 06/15/17 Sennosides/Docusate Sodium [Senna Laxative Tablet] 2 each PO HS 06/15/17 Tramadol HCl 50 mg PO TID PRN 06/15/17 Review of Systems - Review of Systems Able to Perform ROS?: No (nonverbal) <Cl Ramos - Last Filed: 06/15/17 18:17> *Physical Exam - Vital Signs Last Vital Signs Temp Pulse Resp BP Pulse Ox 100.3 F H 88 20 112/81 98 06/15/17 14:29 06/15/17 14:40 06/15/17 14:09 06/15/17 14:09 06/15/17 14:40 - Physical Exam Comments: 06/15/17 15:27 GENERAL: The patient is awake, alert, and fully oriented, in no acute distress. +Nonverbal HEAD: Normal with no signs of trauma. EYES: Pupils equal, round and reactive to light, extraocular movements intact, sclera anicteric, conjunctiva clear with no pallor. ENT: Ears normal, nares patent, oropharynx clear without exudates. Moist mucous membranes. NECK: Normal range of motion, supple without lymphadenopathy, JVD, or masses. LUNGS: Breath sounds equal. No wheeze/crackles. +Expiratory rhonchi at both bases. HEART: Regular rate and rhythm, normal S1 and S2 without murmur or rub. ABDOMEN: Soft/nontender/nondistended. BS wnl. No guarding or rebound. No palpable masses. No hepatosplenomegaly. EXTREMITIES: Normal range of motion, no edema. No clubbing or cyanosis. No cords, erythema, or tenderness. NEUROLOGICAL: Cranial nerves II through XII grossly intact. Normal speech. PSYCH: Normal mood, normal affect. SKIN: Warm, Dry, normal turgor, no rashes or lesions noted. <Sandra Stanley - Last Filed: 06/15/17 15:26> - Vital Signs Last Vital Signs Temp Pulse Resp BP Pulse Ox 100.3 F H 88 20 112/81 98 06/15/17 14:29 06/15/17 14:40 06/15/17 14:09 06/15/17 14:09 06/15/17 14:40 <Cl Ramos - Last Filed: 06/15/17 18:17> - Vital Signs Last Vital Signs Temp Pulse Resp BP Pulse Ox 100.3 F H 88 20 112/81 98 06/15/17 14:29 06/15/17 14:40 06/15/17 14:09 06/15/17 14:09 06/15/17 14:40 <Valerie Dubois - Last Filed: 06/15/17 19:17> Heart Score/ECG Review #1 ECG reviewed & interpreted by me at: 14:33 General ECG Interpretation: Sinus Rhythm, Normal Rate (95), Normal Intervals ( qtc 432), No acute ischemic changes <Cl Ramos - Last Filed: 06/15/17 18:17> ED Treatment Course - LABORATORY CBC & Chemistry Diagram: 06/15/17 14:32 06/15/17 14:32 - ADDITIONAL ORDERS Additional order review: Laboratory Results 06/15/17 14:32 PT with INR 11.40 INR 1.01 06/15/17 14:32 RBC 3.94 MCV 93.5 MCHC 31.9 L RDW 14.2 D MPV 8.0 D Neutrophils % 66.9 D Lymphocytes % 18.7 D Monocytes % 10.7 H Eosinophils % 3.4 D Basophils % 0.3 D <Sandra Stanley - Last Filed: 06/15/17 15:26> - LABORATORY CBC & Chemistry Diagram: 06/15/17 14:32 06/15/17 14:32 - RADIOLOGY Radiology Studies Ordered: Category Date Time Status HEAD CT (STROKE) [CT] Stat CT Scan 06/15/17 14:11 Completed CHEST X-RAY PORTABLE* [RAD] Stat Radiology 06/15/17 14:11 Ordered <Cl Ramos - Last Filed: 06/15/17 18:17> - LABORATORY CBC & Chemistry Diagram: 06/15/17 14:32 06/15/17 14:32 - ADDITIONAL ORDERS Additional order review: Laboratory Results 06/15/17 06/15/17 06/15/17 17:20 15:23 14:32 PT with INR INR Sodium Potassium Chloride Carbon Dioxide Anion Gap BUN Creatinine Creat Clearance w eGFR Random Glucose Lactic Acid 1.3 Calcium Total Bilirubin AST ALT Alkaline Phosphatase Creatine Kinase Creatine Kinase Index CK-MB (CK-2) Troponin I Total Protein Albumin Triglycerides Cholesterol Total LDL Cholesterol HDL Cholesterol Urine Color Yellow Urine Appearance Turbid Urine pH 5.0 Ur Specific [place] 1.019 Urine Protein 2+ H Urine Glucose (UA) Negative Urine Ketones Negative Urine Blood Negative Urine Nitrite Positive Urine Bilirubin Negative Urine Urobilinogen Negative Ur Leukocyte Esterase 2+ H Urine WBC (Auto) 2684 Urine RBC (Auto) 72 Ur Epithelial Cells Rare Urine Mucus Rare Blood Type O NEGATIVE Antibody Screen Negative 06/15/17 06/15/17 14:32 14:32 PT with INR 11.40 INR 1.01 Sodium 141 Potassium 4.6 Chloride 105 Carbon Dioxide 30 Anion Gap 6 L BUN 30 H Creatinine 0.9 Creat Clearance w eGFR > 60 Random Glucose 108 H Lactic Acid Calcium 9.0 Total Bilirubin 0.2 D AST 28 ALT 36 Alkaline Phosphatase 75 Creatine Kinase 348 H Creatine Kinase Index 1.0 CK-MB (CK-2) 3.775 H Troponin I < 0.02 Total Protein 6.5 Albumin 3.1 L Triglycerides 80 Cholesterol 168 Total LDL Cholesterol 87 HDL Cholesterol 74 H Urine Color Urine Appearance Urine pH Ur Specific [place] Urine Protein Urine Glucose (UA) Urine Ketones Urine Blood Urine Nitrite Urine Bilirubin Urine Urobilinogen Ur Leukocyte Esterase Urine WBC (Auto) Urine RBC (Auto) Ur Epithelial Cells Urine Mucus Blood Type Antibody Screen 06/15/17 14:32 RBC 3.94 MCV 93.5 MCHC 31.9 L RDW 14.2 D MPV 8.0 D Neutrophils % 66.9 D Lymphocytes % 18.7 D Monocytes % 10.7 H Eosinophils % 3.4 D Basophils % 0.3 D - Medications Given in the ED: ED Medications Discontinued Medications Generic Name Dose Route Start Last Admin Trade Name Freq PRN Reason Stop Dose Admin Ceftriaxone Sodium 1 gm/ 50 mls @ 100 mls/hr 06/15/17 18:15 06/15/17 19:01 Dextrose IVPB 06/15/17 18:44 100 mls/hr ONCE ONE Administration <Herchek,Valerie - Last Filed: 06/15/17 19:17> Medical Decision Making - Medical Decision Making 06/15/17 15:03 A portion of this note was documented by scribe services under my direction. I have reviewed the details of the note, within reason, and agree with the documentation with the following case summary and management plan written by me. 76-year-old female with history of dementia sent from snf after witnessed to have decreased activity/altered mental status at 1:15 PM, called and asked possible TIA/CVA, but had nonfocal findings on arrival and was noted to have temperature of 100.3 rectally. Code poe was activated and the patient had a stat CT of the head, but no acute pathology was noted. Presentation is much more consistent with metabolic versus infectious process. Sepsis protocol initiated Antipyretics, IV fluids Reassess, likely admission. 06/15/17 18:17 Labs within normal limits, no leukocytosis, lactate normal. Chest x-ray and CT head showed no acute pathology Urinalysis with 2+ leuk esterase, likely source of patient's fever. Urine culture sent, treated with ceftriaxone. Patient of [facility] admitting for Dr. Mejia. Signout given to [employer], accepted for obs med/surg by Dr. Ahn <Cl Ramos - Last Filed: 06/15/17 18:17> - Medical Decision Making 06/15/17 19:[address] read and reviewed by Dr. Sood shows no evidence of acute intracranial pathology. Chest x-ray, read and reviewed by Dr. Sparks, returns unremarkable <Valerie Dubois - Last Filed: 06/15/17 19:17> *DC/Admit/Observation/Transfer - Attestations Scribe Attestion: 06/15/17 15:27 Documentation prepared by Sandra Stanley, acting as expert medical writer for Cl Ramos MD <Sandra Stanley - Last Filed: 06/15/17 15:26> - Discharge Dispostion Admit: Yes <Cl Ramos - Last Filed: 06/15/17 18:17> - Attestations Scribe Attestion: 06/15/17 19:17 Documentation prepared by Valerie Dubois, acting as expert medical writer for Cl Ramos MD. <Valerie Dubois - Last Filed: 06/15/17 19:17> Diagnosis at time of Disposition: Transient alteration of awareness UTI (urinary tract infection) Qualifiers: Urinary tract infection type: site unspecified Hematuria presence: without hematuria Qualified Code(s): N39.0 - Urinary tract infection, site not specified - Discharge Dispostion Condition at time of disposition: Fair - Referrals Referrals: Trey Loyd MD [Primary Care Provider] - - Patient Instructions - Post Discharge Activity
[2017-06-15 15:06] LABS: INR 1.01 (0.82-1.09); PROTHROMBIN TIME (PATIENT) 11.4 SEC (9.98-11.88)
[2017-06-15 15:28] LABS: ALBUMIN 3.1 g/dl (3.4-5.0); ANION GAP 6 (8-16); BLOOD UREA NITROGEN 30 mg/dL (7-18); CHLORIDE 105 mmol/L (98-107); CO2 30 mmol/L (21-32); GLUCOSE,RANDOM 108 mg/dL (74-106); POTASSIUM 4.6 mmol/L (3.5-5.1); SODIUM 141 mmol/L (136-145)
[2017-06-15 15:32] LABS: ALK PHOS 75 U/L (45-117); BILIRUBIN,TOTAL 0.2 mg/dL (0.2-1.0); CHOLESTEROL 168 mg/dL (50-200); CREATININE 0.9 mg/dL (0.55-1.02); HDL CHOLESTEROL 74 mg/dL (40-60); LDL CHOLESTEROL (ONLY SJRH) 87 mg/dL (5-100); SGOT/AST 28 U/L (15-37); SGPT/ALT 36 U/L (12-78); TOT PROT 6.5 g/dl (6.4-8.2); TRIGLYCERIDES 80 mg/dL (35-160)
--- NOTE | 2017-06-15 15:37 | EKG ---
Test Reason : Blood Pressure : / mmHG Vent. Rate : 095 BPM Atrial Rate : 095 BPM P-R Int : 132 ms QRS Dur : 062 ms QT Int : 344 ms P-R-T Axes : 084 072 064 degrees QTc Int : 432 ms POOR DATA QUALITY, INTERPRETATION MAY BE ADVERSELY AFFECTED NORMAL SINUS RHYTHM NORMAL ECG WHEN COMPARED WITH ECG OF 26-APR-2017 07:30, NO SIGNIFICANT CHANGE WAS FOUND Confirmed by SHELLEY SANFORD, ARUNA ([id number]) on 06/15/2017 3:36:59 PM Referred By: Confirmed By:ARUNA ROSA MD
[2017-06-15 17:36] LABS: URINE APPEARANCE TURBID; URINE BILIRUBIN NEGATIVE (NEGATIVE); URINE BLOOD NEGATIVE (NEGATIVE); URINE COLOR YELLOW; URINE GLUCOSE (UA) NEGATIVE (NEGATIVE); URINE KETONE NEGATIVE (NEGATIVE); URINE NITRITE POSITIVE (NEGATIVE); URINE UROBILINOGEN NEGATIVE mg/dL (0.2-1.0)
[2017-06-15 17:40] LABS: URINE LEUK ESTERASE 2+ (NEGATIVE); URINE PROTEIN 2+ (NEGATIVE)
[2017-06-15] MEDS ORDERED: CEFTRIAXONE 1 GM in DEXTROSE 5%-WATER - 50 ML IVPB ONE (18:15)
[2017-06-15 18:30] LABS: EPI CELLS RARE /HPF (FEW); URINE MUCUS RARE
[2017-06-15] MEDS ORDERED: CEFTRIAXONE 2 GM/100 ML BAG IVPB ONE (18:57)
--- NOTE | 2017-06-15 20:47 | HP ---
CHIEF COMPLAINT: altered mental status PCP: [facility] HISTORY OF PRESENT ILLNESS: This is a 76 year old female with a past medical history significant for HTN, dementia presented to the ED from [facility] after nursing staff noticed pt not feeding self as per her usual and was leaning to one side in WC. Daughter at bedside during exam. Daughter reports that she does notice a minimal facial droop and that her mom is not as verbal as per her usual. ER course was notable for: (1) CT head with no acute findings (2) U/a c/w UTI (3) rectal temp 100.3 Recent Travel: none PAST MEDICAL HISTORY: GERD, HTN, COPD, hypothyroid, PNA, R hip fx, dementia, depression, schizophrenia PAST SURGICAL HISTORY: right hip ORIF appendectomy Social History: Smokin ppd until a couple of years ago Alcohol: daughter denies Drugs: daughter denies Family History: mother age 93, [place] father 60s, lung CA, was a smoker and drinker sister BrCA sister brain aneurysm brother unkown CA 3 siblings alive and well Allergies No Known Allergies Allergy (Verified 04/26/17 07:32) HOME MEDICATIONS: 3 Medication Instructions Recorded Acetaminophen 650 mg PO Q6H PRN 06/15/17 Diphenhydramine HCl [Benadryl -] 12.5 mg PO DAILY PRN 06/15/17 Famotidine 20 mg PO BID 06/15/17 Heparin - 5,000 unit SQ BID 06/15/17 Levothyroxine [Synthroid -] 250 mcg PO DAILY 06/15/17 Mirtazapine 7.5 mg PO HS 06/15/17 Polyethylene Glycol 3350 [Clearlax] 17 gm PO BID 06/15/17 [Senna Laxative Tablet] 2 each PO HS 06/15/17 Tramadol HCl 50 mg PO TID PRN 06/15/17 REVIEW OF SYSTEMS CONSTITUTIONAL: Present: generalized weakness, malaise Absent: fever, chills, diaphoresis, loss of appetite, weight change HEENT: Absent: rhinorrhea, nasal congestion, throat pain, throat swelling, difficulty swallowing, mouth swelling, ear pain, eye pain, visual changes CARDIOVASCULAR: Absent: chest pain, syncope, palpitations, irregular heart rate, lightheadedness , peripheral edema RESPIRATORY: Absent: cough, shortness of breath, dyspnea with exertion, orthopnea, wheezing, stridor, hemoptysis GASTROINTESTINAL: Absent: abdominal pain, abdominal distension, nausea, vomiting, diarrhea, constipation, melena, hematochezia GENITOURINARY: Absent: dysuria, frequency, urgency, hesitancy, hematuria, flank pain, genital pain MUSCULOSKELETAL: Absent: myalgia, arthralgia, joint swelling, back pain, neck pain SKIN: Absent: rash, itching, pallor HEMATOLOGIC/IMMUNOLOGIC: Absent: easy bleeding, easy bruising, lymphadenopathy, frequent infections ENDOCRINE: Absent: unexplained weight gain, unexplained weight loss, heat intolerance, cold intolerance NEUROLOGIC: Present: mental status changes Absent: headache, focal weakness or paresthesias, dizziness, unsteady gait, seizure, bladder or bowel incontinence PSYCHIATRIC: Absent: anxiety, depression, suicidal or homicidal ideation, hallucinations. PHYSICAL EXAMINATION Vital Signs - 24 hr 3 06/15/17 06/15/17 06/15/17 14:09 14:29 14:40 Temperature 100.3 F H Pulse Rate 93 H 88 Respiratory 20 Rate Blood Pressure 112/81 O2 Sat by Pulse 99 98 Oximetry (%) GENERAL: Awake, alert, and answers yes/no questions sometimes, in no acute distress. Pt does not reliably follow commands for exam. HEAD: Normal with no signs of trauma. EYES: Pupils equal, round and reactive to light, extraocular movements appear to be intact, sclera anicteric, conjunctiva clear. left eyelid drooping, not fully open EARS, NOSE, THROAT: Ears normal, nares patent, oropharynx clear without exudates. Moist mucous membranes. mild left facial droop noted NECK: Normal range of motion, supple without lymphadenopathy, JVD, or masses. LUNGS: Breath sounds equal, clear to auscultation bilaterally. No wheezes, and no crackles. No accessory muscle use. HEART: Regular rate and rhythm, normal S1 and S2 without murmur, rub or gallop. ABDOMEN: Soft, nontender, not distended, normoactive bowel sounds, no guarding, no rebound, no masses. No hepatomegaly or splenomegaly. MUSCULOSKELETAL: Normal range of motion at all joints. No bony deformities or tenderness. No CVA tenderness. UPPER EXTREMITIES: 2+ pulses, warm, well-perfused. No cyanosis. No clubbing. No peripheral edema. moves all extremities, unable to reliaby test muscle strength/ weakness LOWER EXTREMITIES: 2+ pulses, warm, well-perfused. No calf tenderness. No peripheral edema. NEUROLOGICAL: Cranial nerves II-XII intact. Normal speech. Normal gait. PSYCHIATRIC: Cooperative. Good eye contact. Appropriate mood and affect. SKIN: Warm, dry, normal turgor, no lesions noted, normal capillary refill. dry, scaly, erythematous rash noted to back Laboratory Results - last 24 hr 3 06/15/17 06/15/17 06/15/17 14:32 14:32 14:32 15:23 WBC 5.9 RBC 3.94 Hgb 11.8 D Hct 36.9 D MCV 93.5 MCH 29.8 MCHC 31.9 L RDW 14.2 D Plt Count 276 D MPV 8.0 D Neutrophils % 66.9 D Lymphocytes % 18.7 D Monocytes % 10.7 H Eosinophils % 3.4 D Basophils % 0.3 D PT with INR 11.40 INR 1.01 Sodium 141 Potassium 4.6 Chloride 105 Carbon Dioxide 30 Anion Gap 6 L BUN 30 H Creatinine 0.9 Creat Clearance w eGFR > 60 Random Glucose 108 H Lactic Acid 1.3 Calcium 9.0 Total Bilirubin 0.2 D AST 28 ALT 36 Alkaline Phosphatase 75 Creatine Kinase 348 H Creatine Kinase Index 1.0 CK-MB (CK-2) 3.775 H Troponin I < 0.02 Total Protein 6.5 Albumin 3.1 L Triglycerides 80 Cholesterol 168 Total LDL Cholesterol 87 HDL Cholesterol 74 H Urine Color Urine Appearance Urine pH Ur Specific [place] Urine Protein Urine Glucose (UA) Urine Ketones Urine Blood Urine Nitrite Urine Bilirubin Urine Urobilinogen Ur Leukocyte Esterase Urine WBC (Auto) Urine RBC (Auto) Ur Epithelial Cells Urine Mucus Blood Type O NEGATIVE Antibody Screen Negative 3 Urine Color Yellow 06/15/17 17:20 Urine Appearance Turbid 06/15/17 17:20 Urine pH 5.0 (5.0-8.0) 06/15/17 17:20 Ur Specific [place] 1.019 (1.001-1.035) 06/15/17 17:20 Urine Protein 2+ (NEGATIVE) H 06/15/17 17:20 Urine Glucose (UA) Negative (NEGATIVE) 06/15/17 17:20 Urine Ketones Negative (NEGATIVE) 06/15/17 17:20 Urine Blood Negative (NEGATIVE) 06/15/17 17:20 Urine Nitrite Positive (NEGATIVE) 06/15/17 17:20 Urine Bilirubin Negative (NEGATIVE) 06/15/17 17:20 Ur Leukocyte Esterase 2+ (NEGATIVE) H 06/15/17 17:20 Urine WBC (Auto) 2684 06/15/17 17:20 Urine RBC (Auto) 72 06/15/17 17:20 Ur Epithelial Cells Rare /HPF (FEW) 06/15/17 17:20 Urine Mucus Rare 06/15/17 17:20 ECG NSR Poor data quality vent rate 95, QTC [address]/T wave changes Radiology Reports CT head without contrast IMPRESSION: No significant interval change or acute intracranial pathology is identified. Reported By: Lyndon Sood MD 06/15/17 1430 CXR portable IMPRESSION: No acute pathology Reported By: Derrick Sparks MD 06/15/17 1549 ASSESSMENT/PLAN: 76yF with PMH GERD, HTN, COPD, hypothyroid, PNA, R hip fx, dementia, depression , schizophrenia presented to the ED after [facility] staff noted altered mental status. Altered mental status r/o CVA/TIA - CT head negative - given mild facial droop and daughter report of pt not as verbal as usual would consider neuro consult but will defer to primary team - BUN elevated will increase IVF to 75cc/hr for now, follow labs in am UTI - cont ceftriaxone daily - follow culture results HTN - on no home medications, BP stable, cont to monitor hypothyroid - cont synthroid, check TSH dementia/depression - cont remeron schizophrenia - pt daughter concerned that prior to rehab, pt was on zyprexa and she appeared overall in better mental and physical condition. Advised daughter decline may be due to hip fracture and overall deterioration during previous hospitalization and may have nothing to do with zyprexa. Advised her to speak with PCP at [facility] DVT PPX - cont heparin 5000u BID FEN - NS @ 75cc/hr - BMP in am - regular puree, nectar thick diet as per [facility] documentation, if any s/s aspiration, obtain swallow eval Dispo: Pt currently requires further observation for management of her emergent medical condition. Visit type - Emergency Visit Emergency Visit: Yes ED Registration Date: 06/15/17 Care time: The patient presented to the Emergency Department on the above date and was hospitalized for further evaluation of their emergent condition. - New Patient This patient is new to me today: Yes Date on this admission: 06/15/17 - Critical Care Critical Care patient: No
[2017-06-15] MEDS ORDERED: ACETAMINOPHEN 325 MG TABLET (FP) PO PRN (21:19)
[2017-06-15] MEDS ORDERED: traMADol HCL 50 MG TABLET PO PRN (21:19)
[2017-06-15 21:36] VITALS: BMI 19.2
[2017-06-15] MEDS: SENNOSIDES 8.6MG TABLET (FP) PO SCH (21:47)
[2017-06-15] MEDS: RANITIDINE HCL 150 MG TABLET (FP) PO SCH (21:47)
[2017-06-15] MEDS: HEPARIN NA (PORCINE) 5,000 UNITS/ML 1ML VIAL SQ SCH (21:48)
[2017-06-15] MEDS: POLYETHYLENE GLYCOL 3350 119 GM BTL PO SCH (21:48)
[2017-06-15] MEDS ORDERED: MIRTAZAPINE 15 MG TABLET (FP) PO SCH (22:00)
[2017-06-16] MEDS ORDERED: LEVOTHYROXINE NA 100 MCG TABLET (FP) PO SCH (07:00)
[2017-06-16 08:44] LABS: BASO % 0.4 % (0-2.0); EOS % 7.4 % (0-4.5); HEMATOCRIT 31.2 % (32.4-45.2); HEMOGLOBIN 10.1 GM/dL (10.7-15.3); MCH 30.1 pg (25.7-33.7); MCHC 32.4 g/dl (32.0-36.0); MEAN CELL VOLUME 92.9 fl (80-96); MONO % 11.2 % (3.8-10.2); PLATELET COUNT 212 K/MM3 (134-434); RBC 3.36 M/mm3 (3.60-5.2); RDW 13.8 % (11.6-15.6); WHITE BLOOD COUNT 4.2 K/mm3 (4.0-10.0)
[2017-06-16 09:10] LABS: ANION GAP 7 (8-16); BLOOD UREA NITROGEN 28 mg/dL (7-18); CALCIUM 8.3 mg/dL (8.5-10.1); CHLORIDE 110 mmol/L (98-107); CO2 27 mmol/L (21-32); CREATININE 0.6 mg/dL (0.55-1.02); GLUCOSE,RANDOM 89 mg/dL (74-106); MAGNESIUM 1.7 mg/dL (1.8-2.4); PHOSPHOROUS 3.2 mg/dL (2.5-4.9); SODIUM 144 mmol/L (136-145)
[2017-06-16] MEDS ORDERED: PT OWN MED DRAWER 7, Y5N ONE (10:56)
[2017-06-16] MEDS: MINERAL OIL/PETROLAT/WATER TOPICAL CREAM 113 GM JAR TP SCH (11:00)
[2017-06-16] MEDS: HEPARIN NA (PORCINE) 5,000 UNITS/ML 1ML VIAL SQ SCH ×2 (11:00→21:19)
[2017-06-16] MEDS: POLYETHYLENE GLYCOL 3350 119 GM BTL PO SCH ×2 (11:01→21:18)
[2017-06-16] MEDS: RANITIDINE HCL 150 MG TABLET (FP) PO SCH ×2 (11:03→21:19)
[2017-06-16] MEDS ORDERED: MAGNESIUM SULF 50% (8.12 MEQ/2 ML-1 GM VIAL) IVPB ONE (14:24)
[2017-06-16] MEDS ORDERED: MAGNESIUM 1GM/D5W - 1 GM/100 ML IVPB IVPB ONE (14:30)
--- NOTE | 2017-06-16 14:30 | PN ---
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, Physician Chief Complaint: admitted from [facility] of leaning to left side and not feeding herself and low grade temp found to have uti on iv abx - Current Medication List Current Medications: Active Medications Acetaminophen (Tylenol -) 650 mg PO Q6H PRN PRN Reason: FEVER Heparin Sodium (Porcine) (Heparin -) 5,000 unit SQ BID [facility] Last Admin: 06/16/17 11:00 Dose: 5,000 unit Sodium Chloride (Normal Saline -) 1,000 mls @ 42 mls/hr IV ASDIR [facility] Last Admin: 06/15/17 14:56 Dose: 42 mls/hr Levothyroxine Sodium (Synthroid -) 200 mcg PO DAILY@0700 [facility] Magnesium Sulfate (Magnesium Sulfate) 1 gm IVPB ONCE ONE Stop: 06/16/17 14:25 Mirtazapine (Remeron -) 7.5 mg PO HS [facility] Last Admin: 06/15/17 21:47 Dose: 7.5 mg Multi-Ingredient Lotion (Eucerin (Small Jar) -) 1 applic TP DAILY [facility] Last Admin: 06/16/17 11:00 Dose: 1 applic Polyethylene Glycol (Miralax (For Daily Use) -) 17 gm PO BID [facility] Last Admin: 06/16/17 11:01 Dose: Not Given Ranitidine HCl (Zantac -) 150 mg PO BID [facility] Last Admin: 06/16/17 11:03 Dose: 150 mg Senna (Senna -) 2 tab PO HS [facility] Last Admin: 06/15/17 21:47 Dose: 2 tab Tramadol HCl (Ultram -) 50 mg PO Q8H PRN PRN Reason: PAIN - Objective Vital Signs: Vital Signs Temperature 97.9 F 06/16/17 09:39 Pulse Rate 90 06/16/17 09:39 Respiratory Rate 18 06/16/17 09:39 Blood Pressure 132/57 06/16/17 09:39 O2 Sat by Pulse Oximetry (%) 95 06/16/17 11:00 Constitutional: Yes: Calm Cardiovascular: Yes: Regular Rate and Rhythm, S1, S2 Respiratory: Yes: CTA Bilaterally Gastrointestinal: Yes: Normal Bowel Sounds, Soft Edema: No Neurological: Yes: Lethargy (sleepy in bed) Labs: CBC, BMP 06/16/17 07:20 06/16/17 07:20 INR, PTT INR 1.01 (0.82-1.09) 06/15/17 14:32 Problem List - Problems (1) Hypomagnesemia Assessment/Plan: repleted Code(s): E83.42 - HYPOMAGNESEMIA (2) UTI (urinary tract infection) Assessment/Plan: iv abx awaiting cultures maintain iv fluids Code(s): N39.0 - URINARY TRACT INFECTION, SITE NOT SPECIFIED Qualifiers: Urinary tract infection type: site unspecified Hematuria presence: without hematuria Qualified Code(s): N39.0 - Urinary tract infection, site not specified (3) Altered mental status, unspecified Assessment/Plan: neuro eval synthroid dose decreased given low tsh Code(s): R41.82 - ALTERED MENTAL STATUS, UNSPECIFIED Qualifiers: Altered mental status type: transient alteration of awareness Qualified Code(s): R40.4 - Transient alteration of awareness (4) Hypothyroid Assessment/Plan: synthroid dose decreased Code(s): E03.9 - HYPOTHYROIDISM, UNSPECIFIED
[2017-06-16] MEDS: SODIUM CHLORIDE 1,000 ML IV SCH (15:55)
--- NOTE | 2017-06-16 18:01 | CON.PSY ---
Psychiatry Consult Chief Complaint: Patient seen for drooling? Symptoms: reports: Memory Impairment - Previous Psychiatric Treatment Outpatient: None Inpatient: None - Previous Substance Abuse Treatment Outpatient: None Inpatient: None - Current Medications Current Medications: Active Medications Acetaminophen (Tylenol -) 650 mg PO Q6H PRN PRN Reason: FEVER Heparin Sodium (Porcine) (Heparin -) 5,000 unit SQ BID [facility] Last Admin: 06/16/17 11:00 Dose: 5,000 unit Sodium Chloride (Normal Saline -) 1,000 mls @ 42 mls/hr IV ASDIR [facility] Last Admin: 06/16/17 15:55 Dose: 42 mls/hr Levothyroxine Sodium (Synthroid -) 200 mcg PO DAILY@0700 [facility] Multi-Ingredient Lotion (Eucerin (Small Jar) -) 1 applic TP DAILY [facility] Last Admin: 06/16/17 11:00 Dose: 1 applic Polyethylene Glycol (Miralax (For Daily Use) -) 17 gm PO BID [facility] Last Admin: 06/16/17 11:01 Dose: Not Given Ranitidine HCl (Zantac -) 150 mg PO BID [facility] Last Admin: 06/16/17 11:03 Dose: 150 mg Senna (Senna -) 2 tab PO HS [facility] Last Admin: 06/15/17 21:47 Dose: 2 tab Tramadol HCl (Ultram -) 50 mg PO Q8H PRN PRN Reason: PAIN - Allergies Allergies: Allergies Allergy/AdvReac Type Severity Reaction Status Date / Time No Known Allergies Allergy Verified 04/26/17 07:32 - Current Living Status Usual Living Arrangement: Skilled Nursing - Current Mental Status Evaluation Appearance: Disheveled Attitude: Guarded - Affect Affect: Constrictive Appropriateness: Not Appropriate - Mood Mood: Euthymic - Speech/Language Expressive: Delayed - Psychomotor Activity Psychomotor Activity: Slowed - Thought Process Thought Process: Circumstantial - Thought Content Hallucinations: Absent Delusions: Absent - Self Perception Self Perception: Depersonalization - Cognition Attention: Diminished Memory, Short Term: 0/3 Memory, Remote with Promptin/3 - Concentration Serial Sevens Intact: No Simple Calculations Intact: No - Abstraction Proverb Interpretation: [place] Judgement: Severely Impaired - Insight Insight: Impaired - Impulse Control Impulse Control: Minimally Impaired - Suicidal Ideation Suicidal Ideation: No - Homicidal Ideation Homicidal Ideation: No Assessment/Plan 1) D/C REmeron.
[2017-06-16] MEDS ORDERED: CEFTRIAXONE 1 G/50 ML PREMIX 50 ML IVPB SCH (19:00)
[2017-06-16] MEDS ORDERED: CEFTRIAXONE IN IS-OSM DEXTROSE 2 GM/50 ML BAG IVPB SCH (19:00)
[2017-06-16] MEDS: CEFTRIAXONE 1 G/50 ML PREMIX 50 ML IVPB SCH (20:25)
[2017-06-16] MEDS: SENNOSIDES 8.6MG TABLET (FP) PO SCH (21:19)
[2017-06-17] MEDS: LEVOTHYROXINE NA 100 MCG TABLET (FP) PO SCH (06:20)
[2017-06-17 09:03] LABS: CALCIUM 8.3 mg/dL (8.5-10.1); CHLORIDE 110 mmol/L (98-107); POTASSIUM 3.8 mmol/L (3.5-5.1); SODIUM 143 mmol/L (136-145)
[2017-06-17 09:04] LABS: ALBUMIN 2.6 g/dl (3.4-5.0); ANION GAP 5 (8-16); BLOOD UREA NITROGEN 24 mg/dL (7-18); CO2 28 mmol/L (21-32); GLUCOSE,RANDOM 85 mg/dL (74-106)
[2017-06-17 09:11] LABS: ALK PHOS 62 U/L (45-117); BILIRUBIN,TOTAL 0.3 mg/dL (0.2-1.0); CREATININE 0.6 mg/dL (0.55-1.02); SGOT/AST 17 U/L (15-37); SGPT/ALT 26 U/L (12-78); TOT PROT 5.3 g/dl (6.4-8.2)
--- NOTE | 2017-06-17 10:12 | PN ---
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 (short form) - Note 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: ID Consult dictated UTI/ Possible sepsis secondary to UTI Toxic metabolic encephalopathy R/O TIA Pending c/s continue empiric ceftriaxone
[2017-06-17] MEDS: POLYETHYLENE GLYCOL 3350 119 GM BTL PO SCH ×2 (10:15→21:39)
[2017-06-17] MEDS: HEPARIN NA (PORCINE) 5,000 UNITS/ML 1ML VIAL SQ SCH ×2 (10:15→21:39)
[2017-06-17] MEDS: RANITIDINE HCL 150 MG TABLET (FP) PO SCH ×2 (10:15→21:39)
[2017-06-17] MEDS: MINERAL OIL/PETROLAT/WATER TOPICAL CREAM 113 GM JAR TP SCH (10:15)
[2017-06-17] MEDS: CEFTRIAXONE 1 G/50 ML PREMIX 50 ML IVPB SCH (10:15)
--- NOTE | 2017-06-17 11:20 | CONS ---
INFECTIOUS DISEASE CONSULTATION DATE OF CONSULTATION: DATE OF DICTATION: 06/17/2017 REASON FOR CONSULTATION: The patient is a 76-year-old female with a history of dementia, alf resident, evaluated for sepsis. HISTORY OF PRESENT ILLNESS: History was obtained from the chart as she cannot give a history secondary to her dementia. The patient was noted at the alf to have altered mental status. She was unable to feed herself and was noted to be leaning to the left. In addition, family members reported possible left facial weakness. She was transferred to the emergency room where a nj poe was called. A CAT scan of the head was performed and was negative for acute infarct or bleed. Her course was complicated by fever to 100.3. Initial workup showed pyuria. Cultures were obtained, and she was empirically treated with ceftriaxone. The patient is awake, however, is not conversant. She resists exam. She is in no acute distress. Breathing is non-labored. PAST MEDICAL HISTORY: Positive for dementia, gastroesophageal reflux, hypertension, COPD, schizophrenia, hypothyroidism, depression. PAST SURGICAL HISTORY: Status post ORIF of the right hip April 2017, appendectomy. ALLERGIES: No known allergies. MEDICATIONS: Benadryl, Pepcid, Synthroid, tramadol. SOCIAL HISTORY: She is a alf resident, dependent in activities of daily living. She is a former smoker. SYSTEMS REVIEW: Neurologic: As per HPI. Cardiac: Negative chest pain or palpitations. Respiratory: Negative cough or sputum production. Gastrointestinal: Negative vomiting or diarrhea. Genitourinary: As per HPI. LABORATORY DATA: White count 4.2; neutrophils 59, lymphocytes 22, monocytes 11, eosinophils 7; hematocrit 31.2; platelet count 212. BUN 24, creatinine 0.6. Liver enzymes normal. Urinalysis: White cells 2684. Blood and urine cultures are pending. Chest x-ray negative for acute infiltrate. PHYSICAL EXAMINATION: General: She is awake. She is not conversant. Patient is thin. Vital Signs: Temperature 98.0, T-max 100.3; blood pressure 114/95; pulse 101, regular; respirations 18 per minute. HEENT: The sclerae are anicteric. Dry mucous membranes. Heart: Sounds S1, S2. No murmur. Lungs: Clear. Poor inspiratory effort. No rhonchi, rales, or wheezing. Abdomen: Soft. No tenderness elicited. No mass, rebound, or rigidity. No suprapubic or flank tenderness. Extremities: Negative for edema. IMPRESSION: 1. Urinary tract infection/possible sepsis secondary to urinary tract infection. 2. Toxic metabolic encephalopathy. 3. Possible transient ischemic attack. RECOMMENDATION: Await culture results. Empiric antibiotic coverage with ceftriaxone 1 g IV piggyback daily pending sepsis workup. Neurology followup. Will follow. Thank you for the kind referral. JOSELIN JUÁREZ M.D. [id number]
--- NOTE | 2017-06-17 13:21 | PN ---
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, Physician Chief Complaint: AWAKE ALERT NAD THIS IS MY FIRST ENCOUNTER WITH THIS PATIENT - Current Medication List Current Medications: Active Medications Acetaminophen (Tylenol -) 650 mg PO Q6H PRN PRN Reason: FEVER Heparin Sodium (Porcine) (Heparin -) 5,000 unit SQ BID [facility] Last Admin: 06/17/17 10:15 Dose: 5,000 unit Sodium Chloride (Normal Saline -) 1,000 mls @ 42 mls/hr IV ASDIR [facility] Last Admin: 06/16/17 15:55 Dose: 42 mls/hr CEFTRIAXONE 1 G/50 ML PREMIX (Ceftriaxone 1 Gm-D5w Bag) 50 mls @ 100 mls/hr IVPB DAILY [facility] Last Admin: 06/17/17 10:15 Dose: 100 mls/hr Levothyroxine Sodium (Synthroid -) 200 mcg PO DAILY@0700 [facility] Last Admin: 06/17/17 06:20 Dose: 200 mcg Multi-Ingredient Lotion (Eucerin (Small Jar) -) 1 applic TP DAILY [facility] Last Admin: 06/17/17 10:15 Dose: 1 applic Polyethylene Glycol (Miralax (For Daily Use) -) 17 gm PO BID [facility] Last Admin: 06/17/17 10:15 Dose: 17 gm Ranitidine HCl (Zantac -) 150 mg PO BID [facility] Last Admin: 06/17/17 10:15 Dose: 150 mg Senna (Senna -) 2 tab PO HS [facility] Last Admin: 06/16/17 21:19 Dose: 2 tab Tramadol HCl (Ultram -) 50 mg PO Q8H PRN PRN Reason: PAIN - Objective Vital Signs: Vital Signs Temperature 98.0 F 06/17/17 05:37 Pulse Rate 101 H 06/17/17 05:37 Respiratory Rate 18 06/17/17 05:37 Blood Pressure 114/95 06/17/17 05:37 O2 Sat by Pulse Oximetry (%) 96 06/16/17 22:00 Constitutional: Yes: No Distress Eyes: Yes: WNL HENT: Yes: WNL Neck: Yes: WNL Cardiovascular: Yes: WNL Respiratory: Yes: WNL Gastrointestinal: Yes: WNL Genitourinary: Yes: Incontinence Musculoskeletal: Yes: Muscle Weakness Extremities: Yes: WNL Edema: No Peripheral Pulses WNL: Yes Integumentary: Yes: WNL Wound/Incision: Yes: Clean/Dry Neurological: Yes: Confusion ...Motor Strength: LLE, RLE Psychiatric: Yes: Other Labs: CBC, BMP 06/16/17 07:20 06/17/17 07:30 INR, PTT INR 1.01 (0.82-1.09) 06/15/17 14:32 Problem List - Problems (1) Toxic metabolic encephalopathy Code(s): G92 - TOXIC ENCEPHALOPATHY (2) Altered mental status, unspecified Code(s): R41.82 - ALTERED MENTAL STATUS, UNSPECIFIED Qualifiers: Altered mental status type: transient alteration of awareness Qualified Code(s): R40.4 - Transient alteration of awareness (3) Chronic bronchitis Code(s): J42 - UNSPECIFIED CHRONIC BRONCHITIS (4) Dementia Code(s): F03.90 - UNSPECIFIED DEMENTIA WITHOUT BEHAVIORAL DISTURBANCE Assessment/Plan IV ABX ID CONSULT AWAIT CULTURES TO RETURN PT EVAL
[2017-06-17] MEDS: SODIUM CHLORIDE 1,000 ML IV SCH (13:30)
--- NOTE | 2017-06-17 20:16 | CONSULT ---
Consult - text type - Consultation Consultation Note: NEUROLOGY CONSULTATION is greatly appreciated: This 76 yo woman is a group home resident with h/o COPD, hypothyroidism, GERD , depression and dementia. Maintained on L-thyroxin, famotidene, benadryl and mirtazepine. Admitted with increased lethargy after slumping over in chair. Found to be febrile with Urine WBC= 2684. Started on ceftriaxone. Seen by ID, Psyche. CT of head (reviewed): Moderate, diffuse atrophy with calcification of intracranial arteries. EXAM: Neck supple. No bruits. Cor reg. Awake, alert. Follows simple commands. Gibberish speech. +Glabella, snout, suck, root, grasps. CN II-XII: Normal. swallows liquid and puree without difficulty. Slightly rigid tone but moves all fours well and symmetrically. Normal reflexes except absent AJ's. Toes downgoing. No obvious dystaxia. Withdraws all 4's to pinch. IMP: Moderately severe, B/L cerebral dysfunction (OMS, Chronic) c/w advanced Alzheimer's. No focality to suggest new CVA. Toxic-Metabolic encephalopathy due to UTI/urosepsis. SUGGEST: Continue antibiotics and hydration. Mobilize OOB to chair for meals. Agree with D/C of mirtazepine. Would also D/C benadryl. Repeat UA to assure sterility prior to return to NH. Consider donepezil 5m PO q AM Thank you very much, Yong Shelton MD
[2017-06-17] MEDS ORDERED: PT OWN MED DRAWER 7, Y5N ONE (20:54)
[2017-06-17] MEDS: SENNOSIDES 8.6MG TABLET (FP) PO SCH (21:39)
[2017-06-18] MEDS: SODIUM CHLORIDE 1,000 ML IV SCH (05:00)
[2017-06-18] MEDS: LEVOTHYROXINE NA 100 MCG TABLET (FP) PO SCH (06:05)
[2017-06-18] MEDS: CEFTRIAXONE 1 G/50 ML PREMIX 50 ML IVPB SCH (09:35)
[2017-06-18] MEDS: RANITIDINE HCL 150 MG TABLET (FP) PO SCH ×2 (09:36→21:19)
[2017-06-18] MEDS: HEPARIN NA (PORCINE) 5,000 UNITS/ML 1ML VIAL SQ SCH ×2 (09:36→21:19)
[2017-06-18] MEDS: POLYETHYLENE GLYCOL 3350 119 GM BTL PO SCH ×2 (09:36→21:20)
[2017-06-18] MEDS: MINERAL OIL/PETROLAT/WATER TOPICAL CREAM 113 GM JAR TP SCH (09:37)
--- NOTE | 2017-06-18 13:07 | PN ---
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, Physician Chief Complaint: ASLEEP AROUSABLE CONFUSED - Current Medication List Current Medications: Active Medications Acetaminophen (Tylenol -) 650 mg PO Q6H PRN PRN Reason: FEVER Heparin Sodium (Porcine) (Heparin -) 5,000 unit SQ BID [facility] Last Admin: 06/18/17 09:36 Dose: 5,000 unit Sodium Chloride (Normal Saline -) 1,000 mls @ 42 mls/hr IV ASDIR [facility] Last Admin: 06/18/17 05:00 Dose: 42 mls/hr CEFTRIAXONE 1 G/50 ML PREMIX (Ceftriaxone 1 Gm-D5w Bag) 50 mls @ 100 mls/hr IVPB DAILY [facility] Last Admin: 06/18/17 09:35 Dose: 100 mls/hr Levothyroxine Sodium (Synthroid -) 200 mcg PO DAILY@0700 [facility] Last Admin: 06/18/17 06:05 Dose: 200 mcg Multi-Ingredient Lotion (Eucerin (Small Jar) -) 1 applic TP DAILY [facility] Last Admin: 06/18/17 09:37 Dose: 1 applic Polyethylene Glycol (Miralax (For Daily Use) -) 17 gm PO BID [facility] Last Admin: 06/18/17 09:36 Dose: 17 gm Ranitidine HCl (Zantac -) 150 mg PO BID [facility] Last Admin: 06/18/17 09:36 Dose: 150 mg Senna (Senna -) 2 tab PO HS [facility] Last Admin: 06/17/17 21:39 Dose: 2 tab Tramadol HCl (Ultram -) 50 mg PO Q8H PRN PRN Reason: PAIN - Objective Vital Signs: Vital Signs Temperature 98.6 F 06/18/17 09:00 Pulse Rate 71 06/18/17 09:00 Respiratory Rate 20 06/18/17 09:00 Blood Pressure 117/65 06/18/17 09:00 O2 Sat by Pulse Oximetry (%) 95 06/18/17 09:00 Constitutional: Yes: Mild Distress Eyes: Yes: WNL HENT: Yes: WNL Neck: Yes: WNL Cardiovascular: Yes: WNL Respiratory: Yes: WNL Gastrointestinal: Yes: WNL Genitourinary: Yes: Incontinence Musculoskeletal: Yes: Muscle Weakness Extremities: Yes: WNL Edema: No Peripheral Pulses WNL: Yes Integumentary: Yes: WNL Wound/Incision: Yes: Clean/Dry Neurological: Yes: Confusion ...Motor Strength: LLE, RLE Psychiatric: Yes: Other Labs: CBC, BMP 06/16/17 07:20 06/17/17 07:30 INR, PTT INR 1.01 (0.82-1.09) 06/15/17 14:32 Problem List - Problems (1) Toxic metabolic encephalopathy Code(s): G92 - TOXIC ENCEPHALOPATHY (2) Altered mental status, unspecified Code(s): R41.82 - ALTERED MENTAL STATUS, UNSPECIFIED Qualifiers: Altered mental status type: transient alteration of awareness Qualified Code(s): R40.4 - Transient alteration of awareness (3) Chronic bronchitis Code(s): J42 - UNSPECIFIED CHRONIC BRONCHITIS (4) Dementia Code(s): F03.90 - UNSPECIFIED DEMENTIA WITHOUT BEHAVIORAL DISTURBANCE Assessment/Plan IV ABX ID CONSULT NEURO EVAL APPRECIATED AWAIT CULTURES TO RETURN PT EVAL
--- NOTE | 2017-06-18 15:26 | PN ---
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 (short form) - Note 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: NEUROLOGY FOLLOW-UP: Pt is more alert but slightly agitated. Staring, writhing leg movt's Gibberish speech. Follows no commands. + glabella, snout, suck. rigid tone. moves all 4s with good strength and symmetrically. IMP: Severe, b/l cerebral dysfunction c/w advanced AD. Toxic-metabolic encephalopathy due to UTI. Improving on antibiotics but may be developing agitation. Suggest: Continue antibiotics and hydration. If Rx of agitation becomes necessary avoid sedative-hypnotics. Try quetiapine 12.5 PO BID PRN and 25 mg QHS. Thank you very much, Yong Shelton MD
[2017-06-18] MEDS ORDERED: DEXTROSE 5%-NORMAL SALINE 1,000 ML IV SCH (21:00)
[2017-06-18] MEDS: SENNOSIDES 8.6MG TABLET (FP) PO SCH (21:19)
[2017-06-19] MEDS: LEVOTHYROXINE NA 100 MCG TABLET (FP) PO SCH (06:10)
[2017-06-19] MEDS ORDERED: PT OWN MED DRAWER 7, Y5N ONE (10:17)
[2017-06-19] MEDS: RANITIDINE HCL 150 MG TABLET (FP) PO SCH ×2 (10:20→22:15)
[2017-06-19] MEDS: HEPARIN NA (PORCINE) 5,000 UNITS/ML 1ML VIAL SQ SCH ×2 (10:20→22:15)
[2017-06-19] MEDS: CEFTRIAXONE 1 G/50 ML PREMIX 50 ML IVPB SCH (10:20)
[2017-06-19] MEDS: POLYETHYLENE GLYCOL 3350 119 GM BTL PO SCH ×2 (10:22→22:15)
--- NOTE | 2017-06-19 14:43 | PN ---
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, Physician Chief Complaint: ASLEEP RESTRAINTS FOR AGITATION - Current Medication List Current Medications: Active Medications Acetaminophen (Tylenol -) 650 mg PO Q6H PRN PRN Reason: FEVER Heparin Sodium (Porcine) (Heparin -) 5,000 unit SQ BID [facility] Last Admin: 06/19/17 10:20 Dose: 5,000 unit CEFTRIAXONE 1 G/50 ML PREMIX (Ceftriaxone 1 Gm-D5w Bag) 50 mls @ 100 mls/hr IVPB DAILY [facility] Last Admin: 06/19/17 10:20 Dose: 100 mls/hr Dextrose/Sodium Chloride (D5-Ns -) 1,000 mls @ 42 mls/hr IV ASDIR [facility] Last Admin: 06/18/17 21:19 Dose: 42 mls/hr Levothyroxine Sodium (Synthroid -) 200 mcg PO DAILY@0700 [facility] Last Admin: 06/19/17 06:10 Dose: 200 mcg Multi-Ingredient Lotion (Eucerin (Small Jar) -) 1 applic TP DAILY [facility] Last Admin: 06/18/17 09:37 Dose: 1 applic Polyethylene Glycol (Miralax (For Daily Use) -) 17 gm PO BID [facility] Last Admin: 06/19/17 10:22 Dose: 17 gm Ranitidine HCl (Zantac -) 150 mg PO BID [facility] Last Admin: 06/19/17 10:20 Dose: 150 mg Senna (Senna -) 2 tab PO [facility] Last Admin: 06/18/17 21:19 Dose: 2 tab - Objective Vital Signs: Vital Signs Temperature 97.8 F 06/19/17 14:00 Pulse Rate 80 06/19/17 14:00 Respiratory Rate 18 06/19/17 14:00 Blood Pressure 122/57 06/19/17 14:00 O2 Sat by Pulse Oximetry (%) 95 06/19/17 12:00 Constitutional: Yes: Mild Distress Eyes: Yes: WNL HENT: Yes: WNL Neck: Yes: WNL Cardiovascular: Yes: WNL Respiratory: Yes: WNL Gastrointestinal: Yes: WNL Genitourinary: Yes: Incontinence Peripheral Pulses WNL: Yes Integumentary: Yes: WNL Wound/Incision: Yes: Clean/Dry Neurological: Yes: Confusion ...Motor Strength: LLE, RLE Psychiatric: Yes: Other Labs: CBC, BMP 06/16/17 07:20 06/17/17 07:30 INR, PTT INR 1.01 (0.82-1.09) 06/15/17 14:32 Problem List - Problems (1) Toxic metabolic encephalopathy Code(s): G92 - TOXIC ENCEPHALOPATHY (2) Altered mental status, unspecified Code(s): R41.82 - ALTERED MENTAL STATUS, UNSPECIFIED Qualifiers: Altered mental status type: transient alteration of awareness Qualified Code(s): R40.4 - Transient alteration of awareness (3) Chronic bronchitis Code(s): J42 - UNSPECIFIED CHRONIC BRONCHITIS (4) Dementia Code(s): F03.90 - UNSPECIFIED DEMENTIA WITHOUT BEHAVIORAL DISTURBANCE Assessment/Plan IV ABX CHANGED TO CEFTIN PO ID CONSULT ZYPREXA NEURO EVAL APPRECIATED AWAIT CULTURES TO RETURN PT EVAL
[2017-06-19] MEDS: SENNOSIDES 8.6MG TABLET (FP) PO SCH (22:15)
[2017-06-20] MEDS: LEVOTHYROXINE NA 100 MCG TABLET (FP) PO SCH (06:22)
[2017-06-20 07:58] LABS: HEMATOCRIT 35.4 % (32.4-45.2); HEMOGLOBIN 11.5 GM/dL (10.7-15.3); MCH 30.1 pg (25.7-33.7); MCHC 32.4 g/dl (32.0-36.0); MEAN CELL VOLUME 92.9 fl (80-96); MEAN PLT VOLUME 8.5 fl (7.5-11.1); PLATELET COUNT 238 K/MM3 (134-434); RBC 3.81 M/mm3 (3.60-5.2); RDW 13.7 % (11.6-15.6); WHITE BLOOD COUNT 4.2 K/mm3 (4.0-10.0)
[2017-06-20 08:10] LABS: ALBUMIN 2.7 g/dl (3.4-5.0); ANION GAP 6 (8-16); BLOOD UREA NITROGEN 17 mg/dL (7-18); CALCIUM 8.8 mg/dL (8.5-10.1); CHLORIDE 109 mmol/L (98-107); CO2 28 mmol/L (21-32); GLUCOSE,RANDOM 85 mg/dL (74-106); POTASSIUM 4.1 mmol/L (3.5-5.1); SGOT/AST 15 U/L (15-37); SGPT/ALT 23 U/L (12-78); SODIUM 143 mmol/L (136-145)
[2017-06-20 08:13] LABS: ALK PHOS 66 U/L (45-117); BILIRUBIN,TOTAL 0.4 mg/dL (0.2-1.0); CREATININE 0.6 mg/dL (0.55-1.02); TOT PROT 5.8 g/dl (6.4-8.2)
[2017-06-20] MEDS ORDERED: CEFUROXIME AXETIL 250 MG TABLET PO SCH (10:00)
[2017-06-20] MEDS: MINERAL OIL/PETROLAT/WATER TOPICAL CREAM 113 GM JAR TP SCH ×2 (10:46→10:47)
[2017-06-20] MEDS: RANITIDINE HCL 150 MG TABLET (FP) PO SCH (10:48)
[2017-06-20] MEDS: HEPARIN NA (PORCINE) 5,000 UNITS/ML 1ML VIAL SQ SCH (10:48)
[2017-06-20] MEDS: POLYETHYLENE GLYCOL 3350 119 GM BTL PO SCH (10:49)
[2017-06-20] MEDS ORDERED: SODIUM CHLORIDE 250 ML IV STA (11:27)
--- NOTE | 2017-06-20 11:35 | RAPID ---
Physical Examination Vital Signs: Vital Signs Temperature 97.5 F L 06/20/17 06:35 Pulse Rate 84 06/20/17 06:35 Respiratory Rate 19 06/20/17 06:35 Blood Pressure 124/62 06/20/17 06:35 O2 Sat by Pulse Oximetry (%) 94 L 06/20/17 04:00 Findings/Remarks: RRP announced overhead around 11:18am for non-responsiveness. Arrived in room found patient to be non-arousable. Per nurse, patient responds to verbal command and gets agitated on sternal rub at baseline. Upon repeated sternal rub , patient became more alert and awake and responded with upper R arm movement. Vitals: BP 100/56, HR 73, Sat. 95 % 2L NC, Temp 98.3F. Constitutional: Yes: Thin, Other (responsive upon repeated sternal rub) Eyes: Yes: Conjunctiva Clear, PERRL HENT: Yes: Atraumatic, Normocephalic Cardiovascular: Yes: Regular Rate and Rhythm Respiratory: Yes: CTA Bilaterally Neurological: Yes: Unresponsive (responsive upon repeated sternal rub) Labs: CBC, BMP 06/20/17 06:30 06/20/17 06:30 Rapid Response - Rapid Response Assessment: Unresponsiveness - No offending medications upon checking - Non-septic - Hypotensive, ordered small bolus of 250ml NS - ABG to r/o acute hypoxemic respiratory failure - CT head ordered by Dr. Mejia Discussed with attending Ford Carson PGY2
[2017-06-20 13:25] LABS: ARTERIAL BLD GAS O2 SATURATION 95.5 % (90-98.9); ARTERIAL BLOOD GAS BASE EXCESS 2.6 meq/l (-2-2); ARTERIAL BLOOD GAS PCO2 39.7 mmHg (35-45); ARTERIAL BLOOD GAS PO2 73.2 mmHg (70-100); ARTERIAL BLOOD GAS pH 7.44 (7.35-7.45)
[2017-06-20 13:36] LABS: ALLENS TEST POSITIVE
[2017-06-20 14:15] VITALS: BP 124/62; PULSE 81; TEMP 98.1
--- NOTE | 2017-06-20 14:22 | DS ---
Physical Examination Vital Signs: Vital Signs Temperature 98.1 F 06/20/17 14:00 Pulse Rate 81 06/20/17 14:00 Respiratory Rate 20 06/20/17 14:00 Blood Pressure 124/62 06/20/17 14:00 O2 Sat by Pulse Oximetry (%) 94 L 06/20/17 04:00 Findings/Remarks: awake, nad Constitutional: Yes: No Distress Eyes: Yes: WNL HENT: Yes: WNL, Other Cardiovascular: Yes: WNL Respiratory: Yes: WNL Gastrointestinal: Yes: WNL Renal/: Yes: Incontinence Musculoskeletal: Yes: Muscle Weakness Extremities: Yes: WNL Edema: No Peripheral Pulses WNL: Yes Integumentary: Yes: WNL Wound/Incision: Yes: Clean/Dry Neurological: Yes: Pre-Existing Deficit, Unsteady Gait ...Motor Strength: LLE, RLE Psychiatric: Yes: Other Labs: CBC, BMP 06/20/17 06:30 06/20/17 06:30 Discharge Summary Reason For Visit: UTI; TRANSIENT ALTERATION OF AWARENESS Current Active Problems Hypomagnesemia (Acute) Toxic metabolic encephalopathy (Acute) Transient alteration of awareness (Acute) UTI (urinary tract infection) (Acute) Procedures: Principal: CT HEAD NO ACUTE CHANGES Hospital Course: ADMITTED FOR AMS, WEAKNESS, WORKED UP NO CVA, BLOOD CX NEGATIVE F/U THYROID PANEL OUTPATIENT Condition: Fair - Instructions Diet, Activity, Other Instructions: CHECK THYROID PANEL IN 1 WEEK DYSPHAGIA DIET Referrals: Trey Loyd MD [Primary Care Provider] - Disposition: [facility] - Home Medications Comprehensive Discharge Medication List: Ambulatory Orders Acetaminophen 650 mg PO Q6H PRN 06/15/17 Diphenhydramine HCl [Benadryl Capsule -] 12.5 mg PO DAILY PRN 06/15/17 Famotidine 20 mg PO BID 06/15/17 Heparin - 5,000 unit SQ BID 06/15/17 Levothyroxine [Synthroid -] 250 mcg PO DAILY 06/15/17 Polyethylene Glycol 3350 [Clearlax] 17 gm PO BID 06/15/17 Sennosides/Docusate Sodium [Senna Laxative Tablet] 2 each PO HS 06/15/17 Tramadol HCl 50 mg PO TID PRN 06/15/17 Cefuroxime Axetil [Ceftin -] 250 mg PO BID #10 tablet 06/20/17 Mineral Oil/Petrolat,Wht/Water [Eucerin (Small Jar) -] 1 applic TP DAILY jar Olanzapine [Zyprexa -] 2.5 mg PO HS #0 tablet 06/20/17
--- NOTE | 2017-06-20 15:56 | PN ---
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, Physician History of Present Illness: Awake; eyes open ; not verbally responsive Afebrile BC no growth - Current Medication List Current Medications: Active Medications Acetaminophen (Tylenol -) 650 mg PO Q6H PRN PRN Reason: FEVER Cefuroxime Axetil (Ceftin -) 250 mg PO BID [facility] Last Admin: 06/20/17 10:49 Dose: 250 mg Heparin Sodium (Porcine) (Heparin -) 5,000 unit SQ BID [facility] Last Admin: 06/20/17 10:48 Dose: 5,000 unit Levothyroxine Sodium (Synthroid -) 200 mcg PO DAILY@0700 [facility] [place] Last Admin: 06/20/17 06:22 Dose: 200 mcg Multi-Ingredient Lotion (Eucerin (Small Jar) -) 1 applic TP DAILY [facility] [place] Last Admin: 06/20/17 10:47 Dose: 1 applic Olanzapine (Zyprexa -) 2.5 mg PO HS [facility] [place] Polyethylene Glycol (Miralax (For Daily Use) -) 17 gm PO BID [facility] [place] Last Admin: 06/20/17 10:49 Dose: 17 gm Ranitidine HCl (Zantac -) 150 mg PO BID [facility] [place] Last Admin: 06/20/17 10:48 Dose: 150 mg Senna (Senna -) [address] [facility] Last Admin: 06/19/17 22:15 Dose: 2 tab - Objective Vital Signs: Vital Signs Temperature 98.1 F 06/20/17 14:00 Pulse Rate 81 06/20/17 14:00 Respiratory Rate 20 06/20/17 14:00 Blood Pressure 124/62 06/20/17 14:00 O2 Sat by Pulse Oximetry (%) 94 L 06/20/17 04:00 Constitutional: Yes: No Distress Eyes: Yes: Conjunctiva Clear Cardiovascular: Yes: Regular Rate and Rhythm, S1, S2 Respiratory: Yes: Diminished Gastrointestinal: Yes: Normal Bowel Sounds, Soft. No: Tenderness Edema: No Labs: CBC, BMP 06/20/17 06:30 06/20/17 06:30 INR, PTT INR 1.01 (0.82-1.09) 06/15/17 14:32 Assessment/Plan UTI Toxic metabolic encephalopathy OBS Agree with po ceftin bid x 5d
[2017-06-20] MEDS ORDERED: OLANZapine 2.5 MG TABLET PO SCH (22:00)
== END 2017-06-20 18:18 | DRG 689 ==
LOC: JER 14:04 → JERBED 18:20 → J6S 19:50 → OBSVTOIN 06-16 14:52
PROVIDERS: ADMIT Internal Medicine; ATTEND Family Medicine
DX: N39.0 Urinary tract infection, site not specified (principal); G92 Toxic encephalopathy; I10 Essential (primary) hypertension; E03.9 Hypothyroidism, unspecified; K21.9 Gastro-esophageal reflux disease without esophagitis; J44.9 Chronic obstructive pulmonary disease, unspecified; F03.90 Unspecified dementia, unspecified severity, without behavioral disturbance, psychotic disturbance, mood disturbance, and anxiety; F32.9 Major depressive disorder, single episode, unspecified; F20.9 Schizophrenia, unspecified; F09 Unspecified mental disorder due to known physiological condition; E83.42 Hypomagnesemia; R41.82 Altered mental status, unspecified; J42 Unspecified chronic bronchitis
CPT/HCPCS: 36415; 36600; 70450-TC; 71045-TC; 80048; 80053; 81003; 81015; 82140; 82465; 82550; 82553; 82803; 82962; 83605; 83718; 83721; 83735; 84100; 84443; 84478; 84484; 85025; 85027; 85610; 86850; 86900; 86901; 87040; 87086; 87186; 93005; 93010; 97116-GP; 97161-GP; 99285-25; G0378; J1644

== ENCOUNTER 2017-08-16 10:17 | Emergency (ER) | payer OTHER ==
--- NOTE | 2017-08-16 10:31 | PDOC ---
History of Present Illness - General History Source: Care Provider, Old Records Exam Limitations: Dementia, Other - History of Present Illness Initial Comments: 08/16/17 10:48 The patient is a 76 year old female, with a significant past medical history of major depressive disorder, schizophrenia, dementia, COPD, GERD, hypertension, and hypothyroidism, who presents to the emergency department sent by PCP Dr. Sweet for evaluation of right lower extremity. Per Dr. Loyd, at 08:00 patient' s nurse noted her right thigh appeared swollen and painful with movement. No witnessed trauma or falls. Per records, no erythema or ecchymosis noted. Patients history is limited due to dementia. Allergies: NKDA Past Surgical History: Right hip replacement. PCP: Dr. Sweet <Lance Suarez - Last Filed: 08/16/17 17:32> - General History Source: Patient Exam Limitations: No Limitations <Jessica Pérez - Last Filed: 08/16/17 18:39> - General Chief Complaint: Injury Stated Complaint: RT HIP FX Time Seen by Provider: 08/16/17 10:23 Past History <Lance Suarez - Last Filed: 08/16/17 17:32> - Past Medical History COPD: Yes Dementia: Yes GI Disorders: Yes (gerd,dysphania) HTN: Yes Psychiatric Problems: Yes (major depressive disorder,schizoprenia) Thyroid Disease: Yes (Hypo) - Surgical History Appendectomy: Yes Orthopedic Surgery: Yes (R Hip surgery) - Suicide/Smoking/Psychosocial Hx Smoking History: Former smoker Have you smoked in the past 12 months: No If you are a former smoker, when did you quit?: 2011 Hx Alcohol Use: No Drug/Substance Use Hx: No Substance Use Type: None Hx Substance Use Treatment: No <Jessica Pérez - Last Filed: 08/16/17 18:39> - Past Medical History Allergies/Adverse Reactions: Allergies Allergy/AdvReac Type Severity Reaction Status Date / Time No Known Allergies Allergy Verified 08/16/17 10:37 Home Medications: Ambulatory Orders Acetaminophen 650 mg PO Q6H PRN 08/16/17 Diphenhydramine [Benadryl Oral Solution -] 12.5 mg PO DAILY PRN 08/16/17 Famotidine 20 mg PO BID 08/16/17 Heparin - 5,000 unit SQ BID 08/16/17 Levothyroxine [Synthroid -] 250 mcg PO DAILY 08/16/17 Loratadine [Claritin] 10 mg PO DAILY 08/16/17 Olanzapine 2.5 mg PO HS 08/16/17 Polyethylene Glycol 3350 [Gavilax] 17 gm PO BID 08/16/17 Sennosides [Senna Laxative] 17.2 mg PO HS 08/16/17 Review of Systems - Review of Systems Able to Perform ROS?: No Comments:: 08/16/17 10:48 Unable to obtain due to history of dementia. <Suarez,Springreedhoangrm - Last Filed: 08/16/17 17:32> *Physical Exam - Physical Exam Comments: 08/16/17 10:49 GENERAL: The patient is in no acute distress. Patient unable to cooperate with exam due to dementia. HEAD: Normal with no signs of trauma. EYES: PERRLA, EOMI, sclera anicteric, conjunctiva clear. ENT: Ears normal, nares patent, oropharynx clear without exudates. Moist mucous membranes. LUNGS: Breath sounds equal, clear to auscultation bilaterally. No wheezes, and no crackles. HEART: Regular rate and rhythm, normal S1 and S2 without murmur, rub or gallop. EXTREMITIES: Normal range of motion, no edema. No clubbing or cyanosis. No erythema, or tenderness. MUSCULOSKELETAL: Back non-tender to palpation, no CVA tenderness SKIN: Well healed surgical scar at right hip. Warm, Dry, normal turgor, no rashes or lesions noted. <aLnce Suarez - Last Filed: 08/16/17 17:32> ED Treatment Course - LABORATORY CBC & Chemistry Diagram: 08/16/17 11:10 08/16/17 11:10 - RADIOLOGY Radiograph Interpretation: 08/16/17 17:32 EXAM: XR Hip and Pelvis INTERPRETED BY: Dr. Ray REVIEWED BY: Dr. Pérez IMPRESSION: S/p bilateral total hip arthroplasties with no acute displaced periprosthetic fracture. Interval retroversion of the right acetabular component and heterotopic bone formation along the medial aspect of the proximal right femur, new since 04/27/17. EXAM: CXR INTERPRETED BY: Dr. Wall REVIEWED BY: Dr. Pérez IMPRESSION: Since the prior study of 06/15/17, again is some scarring or chronic atelectactic change by the left hilum. There is no sign of infiltrate or failre. There is sclerotic knob, normal heart and unfolded aorta. The angles are sharp and the soft tissues are intact. There are degenerative spine and shoulder changes with possible post traumatic change or exotosis by the proximal left humerus. Correlation recommended. EXAM: US/ Duplex Right leg INTERPRETED BY: Dr. Sood REVIEWED BY: Dr. Pérez IMPRESSION: Uncooperative patient limiting this examination. There is no evidence of deep venous thromboses in the right lower extremity. <Lance Suarez - Last Filed: 08/16/17 17:32> - LABORATORY CBC & Chemistry Diagram: 08/16/17 11:10 08/16/17 11:10 <Jessica Pérez - Last Filed: 08/16/17 18:39> Medical Decision Making - Medical Decision Making 08/16/17 10:50 First call placed to Dr. Sweet at 10:48. Awaiting call back. Second call placed to Dr. Sweet at 11:25. Awaiting call back. Case discussed with Dr. Loyd at 12:00. <Lance Suarez - Last Filed: 08/16/17 17:32> - Medical Decision Making Miss Jang is a 76-year-old female with a history of depression, dementia, resident of [facility]. Apparently this morning at approximately 8 AM she appeared uncomfortable. Nursing noted that her right thigh was swollen. Patient was sent to the emergency department for evaluation. Patient is a poor historian and therefore cannot give any historical data. I have contacted Pt PMD and confirmed She did not fall today On exam: she is noted to be laying on her left side, hip and knees are both flexed. Evidence of a right hip replacement in the past. No swelling. No erythema of the skin. No erythema of the lower extremity. 08/16/17 12:25 EKG: Sinus rhythm, rate of 90 bpm, axis is normal, right bundle branch block, no ST elevations, T waves normal. 08/16/17 16:20 Xray not read Pt states she has no pain I am able to palpate the right leg with no seming reaction Pt is able to move her hip and knee 08/16/17 16:21 Laboratory Tests 08/16/17 08/16/17 08/16/17 11:10 11:10 11:10 WBC 6.4 D Hgb 11.8 Hct 35.6 Plt Count 241 Neutrophils % 78.3 D Lymphocytes % 9.3 D INR 1.03 Sodium 141 Potassium 4.3 Chloride 108 H Carbon Dioxide 31 BUN 47 H Creatinine 0.7 Random Glucose 102 Pt will be discharged to fpc Pt hgb stable, unlikely GI bleed Pt dehydrated Needs po hydration Clinical Impression: leg pain, initial presentation Dehydration, initial presentation 08/16/17 18:39 <Jessica Pérez - Last Filed: 08/16/17 18:39> *DC/Admit/Observation/Transfer - Attestations Scribe Attestion: 08/16/17 10:50 Documentation prepared by Lance Suarez, acting as medical education coordinator for Jessica Pérez MD. <Lance Suarez - Last Filed: 08/16/17 17:32> - Discharge Dispostion Admit: No <Jessica Pérez - Last Filed: 08/16/17 18:39> Diagnosis at time of Disposition: Leg pain Qualifiers: Laterality: right Qualified Code(s): M79.604 - Pain in right leg - Discharge Dispostion Disposition: RETIREMENT FACILITY Condition at time of disposition: Stable - Referrals Referrals: Trey Loyd MD [Primary Care Provider] - - Patient Instructions Printed Discharge Instructions: DI for Dehydration -- Adult, DI for Leg Pain
[2017-08-16 11:30] LABS: BASO % 0.2 % (0-2.0); EOS % 1.5 % (0-4.5); HEMATOCRIT 35.6 % (32.4-45.2); HEMOGLOBIN 11.8 GM/dL (10.7-15.3); LYMPH % 9.3 % (8-40); MCH 30.5 pg (25.7-33.7); MCHC 33.2 g/dl (32.0-36.0); MEAN CELL VOLUME 91.9 fl (80-96); MEAN PLT VOLUME 7.8 fl (7.5-11.1); MONO % 10.7 % (3.8-10.2); NEUT % 78.3 % (42.8-82.8); PLATELET COUNT 241 K/MM3 (134-434); RBC 3.88 M/mm3 (3.60-5.2); RDW 14.2 % (11.6-15.6); WHITE BLOOD COUNT 6.4 K/mm3 (4.0-10.0)
[2017-08-16 11:48] LABS: INR 1.03 (0.82-1.09); PROTHROMBIN TIME (PATIENT) 11.6 SEC (9.98-11.88)
[2017-08-16 11:57] LABS: ALBUMIN 2.6 g/dl (3.4-5.0); ALK PHOS 70 U/L (45-117); ANION GAP 2 (8-16); BILIRUBIN,TOTAL 0.3 mg/dL (0.2-1.0); BLOOD UREA NITROGEN 47 mg/dL (7-18); CHLORIDE 108 mmol/L (98-107); CO2 31 mmol/L (21-32); CREATININE 0.7 mg/dL (0.55-1.02); GLUCOSE,RANDOM 102 mg/dL (74-106); POTASSIUM 4.3 mmol/L (3.5-5.1); SGOT/AST 14 U/L (15-37); SGPT/ALT 20 U/L (12-78); SODIUM 141 mmol/L (136-145); TOT PROT 5.9 g/dl (6.4-8.2)
[2017-08-16 12:05] VITALS: TEMP 98.3; BMI 19.2
--- NOTE | 2017-08-16 13:14 | EKG ---
Test Reason : Blood Pressure : / mmHG Vent. Rate : 090 BPM Atrial Rate : 082 BPM P-R Int : 136 ms QRS Dur : 108 ms QT Int : 370 ms P-R-T Axes : 070 082 061 degrees QTc Int : 452 ms SINUS RHYTHM WITH PREMATURE ATRIAL COMPLEXES RIGHT BUNDLE BRANCH BLOCK SEPTAL INFARCT , AGE UNDETERMINED ABNORMAL ECG WHEN COMPARED WITH ECG OF 15-JUN-2017 14:33, PREMATURE ATRIAL COMPLEXES ARE NOW PRESENT RIGHT BUNDLE BRANCH BLOCK IS NOW PRESENT SEPTAL INFARCT IS NOW PRESENT Confirmed by CALIN SANFORD, KRUPA ([id number]) on 08/16/2017 1:14:30 PM Referred By: Confirmed By:KRUPA LAYTON MD
[2017-08-16] MEDS ORDERED: SODIUM CHLORIDE 500 ML IV STA (13:28)
[2017-08-16 14:19] VITALS: BP 138/57; PULSE 80
== END 2017-08-16 18:49 ==
LOC: JER 10:17
DX: M79.604 Pain in right leg (principal); Z87.891 Personal history of nicotine dependence; F20.9 Schizophrenia, unspecified; F32.9 Major depressive disorder, single episode, unspecified; E03.9 Hypothyroidism, unspecified
CPT/HCPCS: 36415; 71045-TC-FY; 73523-TC-FY; 80053; 85025; 85610; 86850; 86900; 86901; 93005; 93010; 93971-TC; 99283-25

== ENCOUNTER 2017-10-06 19:24 | Inpatient (IN) | payer OTHER ==
--- NOTE | 2017-10-06 21:49 | PDOC ---
History of Present Illness <Heidy Yuen - Last Filed: 10/07/17 01:48> - History of Present Illness Initial Comments: 10/07/17 15:12 The patient is a 77 year old female with a history of COPD, Dementia, HTN, Hypothyroidism who presents for evaluation of altered mental status and a contracted right upper extremity. The patient is accompanied by family who assist in providing the history. They note that the patient has been more altered over the past few days and noted a contracted right upper extremity prompting their presentation to the ED for further evaluation. They note that the patient has had multiple bilateral hip fractures which are non-operable over the past few months and are also interested in hospice care. The patient is unable to cooperate with history taking due to her mental status and we are unable to obtain a ROS. <Jaden Jones - Last Filed: 10/07/17 15:26> - General Chief Complaint: Altered Mental Status Stated Complaint: AMS Time Seen by Provider: 10/06/17 21:31 Past History <Heidy Yuen - Last Filed: 10/07/17 01:48> - Past Medical History COPD: Yes Dementia: Yes GI Disorders: Yes (gerd,dysphania) HTN: Yes Psychiatric Problems: Yes (major depressive disorder,schizoprenia) Thyroid Disease: Yes (Hypo) - Surgical History Appendectomy: Yes Orthopedic Surgery: Yes (R Hip surgery) - Suicide/Smoking/Psychosocial Hx Smoking History: Former smoker Have you smoked in the past 12 months: No If you are a former smoker, when did you quit?: 2011 Information on smoking cessation initiated: No Hx Alcohol Use: No Drug/Substance Use Hx: No Substance Use Type: None Hx Substance Use Treatment: No <Jaden Jones - Last Filed: 10/07/17 15:26> - Past Medical History Allergies/Adverse Reactions: Allergies Allergy/AdvReac Type Severity Reaction Status Date / Time No Known Allergies Allergy Verified 08/16/17 10:37 Home Medications: Ambulatory Orders Acetaminophen 650 mg PO Q6H PRN 08/16/17 Diphenhydramine [Benadryl Oral Solution -] 12.5 mg PO DAILY PRN 08/16/17 Famotidine 20 mg PO BID 08/16/17 Heparin - 5,000 unit SQ BID 08/16/17 Levothyroxine [Synthroid -] 200 mcg PO DAILY 08/16/17 Loratadine [Claritin] 10 mg PO DAILY 08/16/17 Olanzapine 2.5 mg PO HS 08/16/17 Polyethylene Glycol 3350 [Gavilax] 17 gm PO BID 08/16/17 Sennosides [Senna Laxative] 17.2 mg PO HS 08/16/17 Guaifenesin [Mucinex] 600 mg PO BID PRN 10/07/17 Review of Systems - Review of Systems Able to Perform ROS?: No (Altered Mental Status) <Jaden Jones - Last Filed: 10/07/17 15:26> *Physical Exam - Vital Signs Last Vital Signs Temp Pulse Resp BP Pulse Ox 99.2 F 95 H 18 126/58 94 L 10/07/17 01:48 10/07/17 01:36 10/07/17 01:36 10/07/17 01:36 10/07/17 01:36 <Heidy Yuen - Last Filed: 10/07/17 01:48> - Vital Signs Last Vital Signs Temp Pulse Resp BP Pulse Ox 99.3 F 89 16 107/50 96 10/06/17 19:35 10/06/17 19:35 10/06/17 19:35 10/06/17 19:35 10/06/17 20:50 - Physical Exam Comments: 10/07/17 15:20 General Appearance: Thin chronically ill appearing female. No Apparent Distress HEENT: No Pharyngeal Erythema, Tonsillar Exudate, Tonsillar Erythema Neck: No Cervical Lymphadenopathy Respiratory/Chest: Lungs Clear, Normal Breath Sounds. No Crackles, Rales, Rhonchi, Wheezing Cardiovascular: Regular Rhythm, Regular Rate. No Murmur, Gallops, Rubs Gastrointestinal/Abdominal: Normal Bowel Sounds, Soft. No Guarding, Rebound, Tenderness Musculoskeletal: No CVA Tenderness Extremity: Contracted Right upper extremity noted on exam. Normal Capillary Refill Integumentary: Normal Color, Dry, Warm Neurologic: Minimally responsive, unable to participate in exam. <Jaden Jones - Last Filed: 10/07/17 15:26> ED Treatment Course - LABORATORY CBC & Chemistry Diagram: 10/06/17 21:45 10/06/17 21:45 - ADDITIONAL ORDERS Additional order review: Laboratory Results 10/07/17 10/06/17 10/06/17 00:50 22:23 21:45 PT with INR INR PTT (Actin FS) VBG pH 7.46 H D POC VBG pCO2 37.6 L POC VBG pO2 71.0 H D Mixed VBG HCO3 26.4 H Sodium Potassium Chloride Carbon Dioxide Anion Gap BUN Creatinine Creat Clearance w eGFR Random Glucose Lactic Acid Calcium Total Bilirubin AST ALT Alkaline Phosphatase Troponin I < 0.02 Total Protein Albumin Urine Color Yellow Urine Appearance Slcloudy Urine pH 5.0 Ur Specific [place] 1.018 Urine Protein Negative Urine Glucose (UA) Negative Urine Ketones Negative Urine Blood Negative Urine Nitrite Negative Urine Bilirubin Negative Urine Urobilinogen Negative Ur Leukocyte Esterase 2+ H Urine WBC (Auto) 49 Urine RBC (Auto) 3 Urine Bacteria Rare Urine Mucus Rare 10/06/17 10/06/17 10/06/17 21:45 21:45 21:45 PT with INR 10.30 INR 0.91 PTT (Actin FS) 27.7 VBG pH POC VBG pCO2 POC VBG pO2 Mixed VBG HCO3 Sodium 138 Potassium 5.0 Chloride 102 Carbon Dioxide 28 Anion Gap 8 BUN 44 H Creatinine 1.3 H Creat Clearance w eGFR 39.61 Random Glucose 94 Lactic Acid 1.6 Calcium 9.0 Total Bilirubin 0.1 L D AST 16 ALT 19 Alkaline Phosphatase 125 H Troponin I Total Protein 6.3 L Albumin 2.8 L Urine Color Urine Appearance Urine pH Ur Specific [place] Urine Protein Urine Glucose (UA) Urine Ketones Urine Blood Urine Nitrite Urine Bilirubin Urine Urobilinogen Ur Leukocyte Esterase Urine WBC (Auto) Urine RBC (Auto) Urine Bacteria Urine Mucus 10/06/17 21:45 RBC 3.97 MCV 91.5 MCHC 32.3 RDW 15.7 H D MPV 8.9 D Neutrophils % 61.2 D Lymphocytes % 25.0 D Monocytes % 10.8 H Eosinophils % 2.5 Basophils % 0.5 <Heidy Yuen - Last Filed: 10/07/17 01:48> - LABORATORY CBC & Chemistry Diagram: 10/07/17 07:00 10/07/17 07:00 - RADIOLOGY Radiology Studies Ordered: Category Date Time Status CHEST X-RAY PORTABLE* [RAD] Stat Radiology 10/06/17 21:42 Ordered <Jaden Jones - Last Filed: 10/07/17 15:26> Medical Decision Making - Medical Decision Making 10/07/17 15:22 The patient is a 77 year old female with a history of COPD, Dementia, HTN, Hypothyroidism who presents for evaluation of altered mental status and a contracted right upper extremity. Differential includes but is not limited to: UTI, Sepsis, Intracranial process, Infectious, Metabolic derangement. Given the patient's history of altered mental status, we will obtain a cbc, cmp, troponin, ekg, chest plain film, ua, blood cultures, head CT to evaluate further for possible etiologies. We will continue to monitor and reassess in the meantime. 10/07/17 15:23 CBC, is unremarkable. Chest plain film is unremarkable. Head CT is unremarkable as read by our radiologist. cmp demonstrates an elevated creatinine to 1.3. The patient will likely require admission for josue and altered mental status. The patient was signed out to the night team pending UA and reassessment. <Jaden Jones - Last Filed: 10/07/17 15:26> *DC/Admit/Observation/Transfer - Discharge Dispostion Decision to Admit order: Yes - Attestations Physician Attestion: 10/07/17 01:54 I, Dr. Heidy Yune MD, attest that this document has been prepared under my direction and personally reviewed by me in its entirety. I further attest, that it accurately reflects all work, treatment, procedures and medical decision -making performed by me. <Heidy Yuen - Last Filed: 10/07/17 01:48> <Jaden Jones - Last Filed: 10/07/17 15:26> Diagnosis at time of Disposition: Altered mental status, UTI (urinary tract infection), FTT (failure to thrive) in adult - Discharge Dispostion Condition at time of disposition: Stable
[2017-10-06 22:33] LABS: VENOUS PC02 37.6 mmHg (38-52); VENOUS PH 7.46 (7.32-7.42)
[2017-10-06 22:33] LABS: BASO % 0.5 % (0-2.0); EOS % 2.5 % (0-4.5); HEMATOCRIT 36.3 % (32.4-45.2); HEMOGLOBIN 11.7 GM/dL (10.7-15.3); MCH 29.6 pg (25.7-33.7); MCHC 32.3 g/dl (32.0-36.0); MEAN CELL VOLUME 91.5 fl (80-96); MEAN PLT VOLUME 8.9 fl (7.5-11.1); MONO % 10.8 % (3.8-10.2); NEUT % 61.2 % (42.8-82.8); PLATELET COUNT 279 K/MM3 (134-434); RBC 3.97 M/mm3 (3.60-5.2); RDW 15.7 % (11.6-15.6); WHITE BLOOD COUNT 4.5 K/mm3 (4.0-10.0)
[2017-10-06 22:45] LABS: INR 0.91 (0.82-1.09); PROTHROMBIN TIME (PATIENT) 10.3 SEC (9.7-13.0)
[2017-10-06 22:48] LABS: ACTIVATED PTT 27.7 SECONDS (26.9-34.4)
[2017-10-06 22:56] LABS: ALBUMIN 2.8 g/dl (3.4-5.0); ALK PHOS 125 U/L (45-117); ANION GAP 8 (8-16); BILIRUBIN,TOTAL 0.1 mg/dL (0.2-1.0); BLOOD UREA NITROGEN 44 mg/dL (7-18); CHLORIDE 102 mmol/L (98-107); CO2 28 mmol/L (21-32); CREATININE 1.3 mg/dL (0.55-1.02); GLUCOSE,RANDOM 94 mg/dL (74-106); SGOT/AST 16 U/L (15-37); SGPT/ALT 19 U/L (12-78); SODIUM 138 mmol/L (136-145); TOT PROT 6.3 g/dl (6.4-8.2)
[2017-10-07 01:06] LABS: URINE APPEARANCE SLCLOUDY; URINE BILIRUBIN NEGATIVE (<2.0 mg/dL); URINE COLOR YELLOW; URINE GLUCOSE (UA) NEGATIVE (NEGATIVE); URINE KETONE NEGATIVE (NEGATIVE); URINE NITRITE NEGATIVE (NEGATIVE); URINE PROTEIN NEGATIVE (NEGATIVE); URINE UROBILINOGEN NEGATIVE mg/dL (0.2-1.0)
[2017-10-07 01:11] LABS: URINE LEUK ESTERASE 2+ (NEGATIVE)
[2017-10-07 01:14] LABS: URINE BACTERIA RARE /hpf (NONE SEEN); URINE MUCUS RARE
[2017-10-07] MEDS ORDERED: SODIUM CHLORIDE 0.9% 1000 ML INFUS.BAG IV ONE (01:29)
[2017-10-07] MEDS ORDERED: CEFTRIAXONE 1 GM in DEXTROSE 5%-WATER - 100 ML IVPB ONE (01:30)
[2017-10-07] MEDS ORDERED: cefTRIAXone SODIUM 1 GM VIAL ONE (01:37)
[2017-10-07] MEDS ORDERED: CEFTRIAXONE 1 GM/50 ML BAG ONE (01:40)
--- NOTE | 2017-10-07 01:55 | PDOC ---
Attending Attestation - Resident Resident Name: Jaden Jones - ED Attending Attestation I have performed the following: I have examined & evaluated the patient, The case was reviewed & discussed with the resident, I agree w/resident's findings & plan, Exceptions are as noted - HPI HPI: 10/07/17 02:34 The patient is a 77 year old female brought in by EMS from [facility], with a significant past medical history of hypertension, hypothyroidism, GERD, COPD, dementia, schizophrenia, and major depressive disorder who presents to the emergency department for evaluation of contracted R arm. As per the patients daughter, the patients right arm has been contracted for the past few days, however the daughter notes that 2 weeks ago, she had full use of her RUE. The patient's daughter also notes her mom has been more sleepy, and has lost a lot of weight as she is not eating sufficiently at the SD. The patients daughter reports that the patient has bilateral hip fractures that are non-operable. The patients history is limited due to dementia. Allergies: NKA Past surgical history: Right hip replacement. Social history: No reported cigarette, alcohol, or drug use. PCP: Dr. Sweet - Physicial Exam PE: 10/07/17 02:34 GENERAL: Awake, alert, oriented to name, thin, cachectic in appearance HEAD: No signs of trauma ENT: Nares patent, oropharynx clear without exudates. dry MM NECK: Normal ROM, supple, no lymphadenopathy, JVD, or masses LUNGS: Breath sounds equal, clear to auscultation bilaterally. No wheezes, and no crackles HEART: Regular rate and rhythm, normal S1 and S2, no murmurs, rubs or gallops ABDOMEN: Soft, +suprapubic ttp, normoactive bowel sounds. No guarding, no rebound. No masses EXTREMITIES: RUE contracted, rigid with passive ROM, FROM on LUE NEUROLOGICAL: cranial nerves intact, normal sensation in all 4 extremities SKIN: Warm, Dry, normal turgor, no rashes or lesions noted. - Medical Decision Making 10/07/17 01:50 77-year-old female with multiple medical problems including dementia, schizophrenia presents to the emergency Department with altered mental status, contracted right upper extremity, weight Vitals initially with hypoxia at 88%, improved to 94% on room air without intervention. Exam with contracted right upper extremity and suprapubic tenderness palpation. Workup remarkable for doubling of creatinine compared to previous labs from 0.7-1.3. UA also remarkable for 49 white cells and 2+ leuk esterase consistent with UTI. Pt given 500cc NS and ceftriaxone for UTI (based on previous UCx). Case discussed with [facility] who accepts pt for admission under Dr. Owens. Case discussed in detail with admitting physician including history, physical exam and ancillary studies. Admitting physician has assumed care for the patient, will follow all pending diagnostics and will complete the evaluation and treatment. Heart Score/ECG Review #1 10/07/17 02:32 Twelve-lead EKG was performed and reviewed by me. Normal sinus rhythm, rate 89.+ PACs. +RBBB. No significant change compared to old EKG.
--- NOTE | 2017-10-07 02:34 | HP ---
CHIEF COMPLAINT: R- arm contracture/weakness, weight loss PCP: Dr. Loyd HISTORY OF PRESENT ILLNESS: This is a 77 y/o woman from [facility] with a PMH HTN, Dementia, COPD, Hypothyroid , Schizophrenia, MDD, Aspiration. Who presents to the ED with right sided weakness/contracture, and weight loss. Per the daughter, the patient had full ROM of the right arm 2 weeks ago and now noted decrease ROM of the right hand and severe contracture. Per the daughter, the patient eats pureed food but is still losing weight. The daughter is not interested in PEG placement at this time. Patient unable to provide HPI secondary to Dementia. ER course was notable for: (1) CT Brain- neg ICH, mass or lesion (2) LISSETTE- BUN 44, Cr 1.3 (3) UTI- +2 leukocyte esterase, 49 WBC (4) Albumin 2.8 Recent Travel: None PAST MEDICAL HISTORY: See HPI PAST SURGICAL HISTORY: Hip Replacement Knee Arthroscopy Social History: Smoking: Former Alcohol: None Drugs: None Resides in SNF, dependent Family History: Non-contributory Allergies No Known Allergies Allergy (Verified 08/16/17 10:37) HOME MEDICATIONS: Home Medications Medication Instructions Recorded Acetaminophen 650 mg PO Q6H PRN 08/16/17 Diphenhydramine [Benadryl Oral 12.5 mg PO DAILY PRN 08/16/17 Solution -] Famotidine 20 mg PO BID 08/16/17 Heparin - 5,000 unit SQ BID 08/16/17 Levothyroxine [Synthroid -] 200 mcg PO DAILY 08/16/17 Loratadine [Claritin] 10 mg PO DAILY 08/16/17 Olanzapine 2.5 mg PO HS 08/16/17 Polyethylene Glycol 3350 [Gavilax] 17 gm PO BID 08/16/17 Sennosides [Senna Laxative] 17.2 mg PO HS 08/16/17 REVIEW OF SYSTEMS Unable to Obtain- Dementia CONSTITUTIONAL: Absent: fever, chills, diaphoresis, generalized weakness, malaise, loss of appetite, weight change HEENT: Absent: rhinorrhea, nasal congestion, throat pain, throat swelling, difficulty swallowing, mouth swelling, ear pain, eye pain, visual changes CARDIOVASCULAR: Absent: chest pain, syncope, palpitations, irregular heart rate, lightheadedness , peripheral edema RESPIRATORY: Absent: cough, shortness of breath, dyspnea with exertion, orthopnea, wheezing, stridor, hemoptysis GASTROINTESTINAL: Absent: abdominal pain, abdominal distension, nausea, vomiting, diarrhea, constipation, melena, hematochezia GENITOURINARY: Absent: dysuria, frequency, urgency, hesitancy, hematuria, flank pain, genital pain MUSCULOSKELETAL: Absent: myalgia, arthralgia, joint swelling, back pain, neck pain SKIN: Absent: rash, itching, pallor HEMATOLOGIC/IMMUNOLOGIC: Absent: easy bleeding, easy bruising, lymphadenopathy, frequent infections ENDOCRINE: Absent: unexplained weight gain, unexplained weight loss, heat intolerance, cold intolerance NEUROLOGIC: Absent: headache, focal weakness or paresthesias, dizziness, unsteady gait, seizure, mental status changes, bladder or bowel incontinence PSYCHIATRIC: Absent: anxiety, depression, suicidal or homicidal ideation, hallucinations. PHYSICAL EXAMINATION Vital Signs - 24 hr 10/06/17 10/06/17 10/07/17 19:35 20:50 01:36 Temperature 99.3 F Pulse Rate 89 Pulse Rate [ 95 H Right Apical] Respiratory 16 18 Rate Blood Pressure 107/50 Blood Pressure 126/58 [Right Arm] O2 Sat by Pulse 88 L 96 94 L Oximetry (%) 10/07/17 01:48 Temperature 99.2 F Pulse Rate Pulse Rate [ Right Apical] Respiratory Rate Blood Pressure Blood Pressure [Right Arm] O2 Sat by Pulse Oximetry (%) GENERAL: Cachexia, asleep but arousable, at [facility], in no acute distress. HEAD: Normal with no signs of trauma. EYES: Pupils equal, round and reactive to light, extraocular movements intact, sclera anicteric, conjunctiva clear. No lid lag. EARS, NOSE, THROAT: Ears normal, nares patent, oropharynx clear without exudates .Dry mucous membranes. NECK: Normal range of motion, supple without lymphadenopathy, JVD, or masses. LUNGS: Breath sounds equal, clear to auscultation bilaterally. No wheezes, and no crackles. No accessory muscle use. HEART: Regular rate and rhythm, normal S1 and S2 without murmur, rub or gallop. ABDOMEN: Soft, nontender, not distended, normoactive bowel sounds, no guarding, no rebound, no masses. No hepatomegaly or splenomegaly. MUSCULOSKELETAL: Normal range of motion at all joints. No bony deformities or tenderness. No CVA tenderness. UPPER EXTREMITIES: 2+ pulses, warm, well-perfused. No cyanosis. No clubbing. No peripheral edema. LOWER EXTREMITIES: 2+ pulses, warm, well-perfused. No calf tenderness. No peripheral edema. NEUROLOGICAL: Cranial nerves II-XII intact. Normal speech. Non-ambulatory- gait not observed PSYCHIATRIC: Cooperative. Limited eye contact. Appropriate mood and affect. SKIN: Warm, dry, poor turgor, tenting, no rashes or lesions noted, normal capillary refill. Laboratory Results - last 24 hr 10/06/17 10/06/17 10/06/17 21:45 21:45 21:45 WBC 4.5 RBC 3.97 Hgb 11.7 Hct 36.3 MCV 91.5 MCH 29.6 MCHC 32.3 RDW 15.7 H D Plt Count 279 MPV 8.9 D Neutrophils % 61.2 D Lymphocytes % 25.0 D Monocytes % 10.8 H Eosinophils % 2.5 Basophils % 0.5 Nucleated RBC % 0 PT with INR 10.30 INR 0.91 PTT (Actin FS) 27.7 VBG pH POC VBG pCO2 POC VBG pO2 Mixed VBG HCO3 Sodium 138 Potassium 5.0 Chloride 102 Carbon Dioxide 28 Anion Gap 8 BUN 44 H Creatinine 1.3 H Creat Clearance w eGFR 39.61 Random Glucose 94 Lactic Acid Calcium 9.0 Total Bilirubin 0.1 L D AST 16 ALT 19 Alkaline Phosphatase 125 H Troponin I Total Protein 6.3 L Albumin 2.8 L Urine Color Urine Appearance Urine pH Ur Specific [place] Urine Protein Urine Glucose (UA) Urine Ketones Urine Blood Urine Nitrite Urine Bilirubin Urine Urobilinogen Ur Leukocyte Esterase Urine WBC (Auto) Urine RBC (Auto) Urine Bacteria Urine Mucus 10/06/17 10/06/17 10/06/17 21:45 21:45 22:23 WBC RBC Hgb Hct MCV MCH MCHC RDW Plt Count MPV Neutrophils % Lymphocytes % Monocytes % Eosinophils % Basophils % Nucleated RBC % PT with INR INR PTT (Actin FS) VBG pH 7.46 H D POC VBG pCO2 37.6 L POC VBG pO2 71.0 H D Mixed VBG HCO3 26.4 H Sodium Potassium Chloride Carbon Dioxide Anion Gap BUN Creatinine Creat Clearance w eGFR Random Glucose Lactic Acid 1.6 Calcium Total Bilirubin AST ALT Alkaline Phosphatase Troponin I < 0.02 Total Protein Albumin Urine Color Urine Appearance Urine pH Ur Specific [place] Urine Protein Urine Glucose (UA) Urine Ketones Urine Blood Urine Nitrite Urine Bilirubin Urine Urobilinogen Ur Leukocyte Esterase Urine WBC (Auto) Urine RBC (Auto) Urine Bacteria Urine Mucus 10/07/17 00:50 WBC RBC Hgb Hct MCV MCH MCHC RDW Plt Count MPV Neutrophils % Lymphocytes % Monocytes % Eosinophils % Basophils % Nucleated RBC % PT with INR INR PTT (Actin FS) VBG pH POC VBG pCO2 POC VBG pO2 Mixed VBG HCO3 Sodium Potassium Chloride Carbon Dioxide Anion Gap BUN Creatinine Creat Clearance w eGFR Random Glucose Lactic Acid Calcium Total Bilirubin AST ALT Alkaline Phosphatase Troponin I Total Protein Albumin Urine Color Yellow Urine Appearance Slcloudy Urine pH 5.0 Ur Specific [place] 1.018 Urine Protein Negative Urine Glucose (UA) Negative Urine Ketones Negative Urine Blood Negative Urine Nitrite Negative Urine Bilirubin Negative Urine Urobilinogen Negative Ur Leukocyte Esterase 2+ H Urine WBC (Auto) 49 Urine RBC (Auto) 3 Urine Bacteria Rare Urine Mucus Rare ASSESSMENT/PLAN: 77 y/o woman PMHx of: HTN Hypothyroid, COPD, Dementia, Schizophrenia, MDD. Admitted for Dehydration, secondary to Failure to Thrive, UTI, LISSETTE Plan FEN - D51/2NS@42cc/hr - Replete lytes prn - NPO DVT ppx - SCDs - Heparin SQ Code Status: Full Code, HCP Dispo: Requires Inpatient Care Problem List - Problem (1) Dehydration Assessment/Plan: -Likely secondary to Failure to Thrive -NS bolus given in ED - Will get RD Consult - Swallow Eval - Continue gentle IVF - Monitor lytes - Monitor vitals Code(s): E86.0 - DEHYDRATION (2) FTT (failure to thrive) in adult Assessment/Plan: - See Above - Pts daughter is not open to a PEG, at this point Code(s): R62.7 - ADULT FAILURE TO THRIVE (3) Cachexia Assessment/Plan: - Supportive care - Monitor Albumin - Code(s): R64 - CACHEXIA (4) UTI (urinary tract infection) Assessment/Plan: - Urine Culture-pending - Continue Rocephin - Monitor vitals - Monitor CBC Code(s): N39.0 - URINARY TRACT INFECTION, SITE NOT SPECIFIED (5) HTN (hypertension) Assessment/Plan: - Stable - Monitor BP - Continue home med Code(s): I10 - ESSENTIAL (PRIMARY) HYPERTENSION (6) Hypothyroid Assessment/Plan: - Continue Levothyroxine - TSH in am Code(s): E03.9 - HYPOTHYROIDISM, UNSPECIFIED (7) Dementia Assessment/Plan: - Stable - Continue home med Code(s): F03.90 - UNSPECIFIED DEMENTIA WITHOUT BEHAVIORAL DISTURBANCE (8) Toxic metabolic encephalopathy Assessment/Plan: - Likely secondary to Dehydration vs Failure to Thrive - Fall precautions - Neurochecks Code(s): G92 - TOXIC ENCEPHALOPATHY (9) Functional quadriplegia Assessment/Plan: - Complete immobility due to frailty, end stage Dementia - Requires total care - Turn Q2h - Marysol Lift as needed - Heel protectors - Fall precautions Code(s): R53.2 - FUNCTIONAL QUADRIPLEGIA Visit type - Emergency Visit Emergency Visit: Yes ED Registration Date: 10/06/17 Care time: The patient presented to the Emergency Department on the above date and was hospitalized for further evaluation of their emergent condition. - New Patient This patient is new to me today: Yes Date on this admission: 10/07/17 - Critical Care Critical Care patient: No Hospitalist Screening - Colonoscopy Questionnaire Colonoscopy Questionnaire: Colonoscopy Questionnaire - Patient: 50 - 75 years old and never had a screening colonoscopy: Unknown History of colon or rectal polyps, or CA: Unknown History of IBD, Crohn's disease or UC: Unknown History of abdominal radiation therapy as a child: Unknown - Relative: 1 with colon or rectal CA, or polyps at age 60 or younger: Unknown Colon or rectal CA diagnosed at age 45 or younger: Unknown Multiple relatives with colon or rectal CA: Unknown - Outcome: Screening Result: Negative Screen
[2017-10-07] MEDS: DEXTROSE 5%-0.45% SALINE 1,000 ML IV SCH (02:47)
[2017-10-07 07:48] LABS: BASO % 0.5 % (0-2.0); EOS % 3.2 % (0-4.5); HEMATOCRIT 32.9 % (32.4-45.2); HEMOGLOBIN 10.9 GM/dL (10.7-15.3); LYMPH % 25.7 % (8-40); MCH 30.1 pg (25.7-33.7); MEAN CELL VOLUME 91.1 fl (80-96); MEAN PLT VOLUME 8.3 fl (7.5-11.1); MONO % 10.4 % (3.8-10.2); NEUT % 60.2 % (42.8-82.8); PLATELET COUNT 230 K/MM3 (134-434); RBC 3.61 M/mm3 (3.60-5.2); RDW 15.6 % (11.6-15.6); WHITE BLOOD COUNT 4.1 K/mm3 (4.0-10.0)
[2017-10-07 08:04] LABS: BLOOD UREA NITROGEN 34 mg/dL (7-18); CALCIUM 8.7 mg/dL (8.5-10.1); CO2 29 mmol/L (21-32); CREATININE 0.8 mg/dL (0.55-1.02); GLUCOSE,RANDOM 82 mg/dL (74-106); PHOSPHOROUS 3.1 mg/dL (2.5-4.9)
[2017-10-07 08:43] LABS: ANION GAP 6 (8-16); CHLORIDE 105 mmol/L (98-107); POTASSIUM 4.3 mmol/L (3.5-5.1); SODIUM 140 mmol/L (136-145)
--- NOTE | 2017-10-07 08:50 | EKG ---
Test Reason : Blood Pressure : / mmHG Vent. Rate : 097 BPM Atrial Rate : 097 BPM P-R Int : 132 ms QRS Dur : 106 ms QT Int : 340 ms P-R-T Axes : 086 101 078 degrees QTc Int : 431 ms NORMAL SINUS RHYTHM INCOMPLETE RIGHT BUNDLE BRANCH BLOCK RIGHT VENTRICULAR HYPERTROPHY WITH REPOLARIZATION ABNORMALITY SEPTAL INFARCT (CITED ON OR BEFORE 16-AUG-2017) ABNORMAL ECG WHEN COMPARED WITH ECG OF 16-AUG-2017 10:55, PREMATURE ATRIAL COMPLEXES ARE NO LONGER PRESENT Confirmed by KRUPA LAYTON MD ([id number]) on 10/07/2017 8:50:22 AM Referred By: Confirmed By:KRUPA LAYTON MD
[2017-10-07] MEDS: HEPARIN NA (PORCINE) 5,000 UNITS/ML 1ML VIAL SQ SCH ×2 (09:10→21:26)
--- NOTE | 2017-10-07 12:24 | CON.NEURO ---
Consult - Past Medical History [employer]: Yes: Alzheimer's, Dementia Cardio/Vascular: Yes: CAD ([facility] desribes carcadi cath revealing mild CAD , no stents) Pulmonary: Yes: COPD, Other (left pneumothorax and likely hemothorax with rib fractures) Gastrointestinal: Yes: Other (esophageal food impaction, chart alludes to achalasia but [facility] cannot substantiate this) Endocrine: Yes: Hypothyroidism - Alcohol/Substance Use Hx Alcohol Use: No - Smoking History Smoking history: Former smoker Have you smoked in the past 12 months: No If you are a former smoker, when did you quit?: 2012 - Social History Usual Living Arrangement: Residential ADL: Family Assistance 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 Home Medications - Allergies Allergies/Adverse Reactions: Allergies Allergy/AdvReac Type Severity Reaction Status Date / Time No Known Allergies Allergy Verified 08/16/17 10:37 - Home Medications Home Medications: Ambulatory Orders Acetaminophen 650 mg PO Q6H PRN 08/16/17 Diphenhydramine [Benadryl Oral Solution -] 12.5 mg PO DAILY PRN 08/16/17 Famotidine 20 mg PO BID 08/16/17 Heparin - 5,000 unit SQ BID 08/16/17 Levothyroxine [Synthroid -] 200 mcg PO DAILY 08/16/17 Loratadine [Claritin] 10 mg PO DAILY 08/16/17 Olanzapine 2.5 mg PO HS 08/16/17 Polyethylene Glycol 3350 [Gavilax] 17 gm PO BID 08/16/17 Sennosides [Senna Laxative] 17.2 mg PO HS 08/16/17 Guaifenesin [Mucinex] 600 mg PO BID PRN 10/07/17 Physical Exam-Neuro Vital Signs: Vital Signs Temperature 96.3 F L 10/07/17 05:00 Pulse Rate 87 10/07/17 09:00 Respiratory Rate 20 10/07/17 09:00 Blood Pressure 117/56 10/07/17 09:00 O2 Sat by Pulse Oximetry (%) 95 10/07/17 05:00 Labs: CBC, BMP 10/07/17 07:00 10/07/17 07:00 INR, PTT INR 0.91 (0.82-1.09) 10/06/17 21:45 Assessment/Plan cc Right sided spasticity HPI 77 year old female [place] Resident, History of Dementia, HTN, COPD, Hypothyroid , Schizophrenia, MDD. As per daughter patient develope dright sided spasticity and she was fine 2 week ago. Apparently she has advanced dementia, and mostly bed found. SHe is loosing weight , and daughter is not interested in peg tube placement. CT head done and there is no new findings. Her bun/creatinine was slightly raised. PMH as above SH,ROS,FH reviewed in chart PAST SURGICAL HISTORY: Hip Replacement Knee Arthroscopy NKDA HOME MEDICATIONS: Home Medications Medication Instructions Recorded Acetaminophen 650 mg PO Q6H PRN 08/16/17 Diphenhydramine [Benadryl Oral 12.5 mg PO DAILY PRN 08/16/17 Solution -] Famotidine 20 mg PO BID 08/16/17 Heparin - 5,000 unit SQ BID 08/16/17 Levothyroxine [Synthroid -] 200 mcg PO DAILY 08/16/17 Loratadine [Claritin] 10 mg PO DAILY 08/16/17 Olanzapine 2.5 mg PO HS 08/16/17 Polyethylene Glycol 3350 [Gavilax] 17 gm PO BID 08/16/17 Sennosides [Senna Laxative] 17.2 mg PO HS 08/16/17 Neurological Examination She is alert and opens her eye and did not talk and she is wincing to painful stimuli pupils reactive and no face asymmetry she is not moving her arm on command There is spasticity of right leg and arm notice There is no spasticity on left upper extremity and mild spasticity on left lower extremity SENSATion she withdraws to pain ct head is unchanged since last time Assessment- New onset right sided spasticity, It is less likley these symptoms came about in two weeks. She has multiple commorbdity including Dementia, HTN, COPD, Hypothyroid, Schizophrenia, MDD. Failure to thrive, dehydration and UTI plan- baby aspirin and low dose of lipitor 10 mg can be added once she has swallwoing study . 2. At this point jaclyn emay not benefit from mri of brain or doing carotid ultrasound, as she may not be a candidiate for procedure 3. Suggest to speech /swallowing and PT 4. Continue supportive care Please feel free to call me if you have any question Heladio Conway MD
[2017-10-08] MEDS: DEXTROSE 5%-0.45% SALINE 1,000 ML IV SCH (05:15)
[2017-10-08 07:56] LABS: HEMATOCRIT 32.9 % (32.4-45.2); MCH 30.5 pg (25.7-33.7); MCHC 33.5 g/dl (32.0-36.0); MEAN CELL VOLUME 90.9 fl (80-96); MEAN PLT VOLUME 8.2 fl (7.5-11.1); PLATELET COUNT 206 K/MM3 (134-434); RBC 3.62 M/mm3 (3.60-5.2); RDW 15.5 % (11.6-15.6); WHITE BLOOD COUNT 3.7 K/mm3 (4.0-10.0)
[2017-10-08 08:51] LABS: ANION GAP 7 (8-16); BLOOD UREA NITROGEN 19 mg/dL (7-18); CALCIUM 8.9 mg/dL (8.5-10.1); CHLORIDE 108 mmol/L (98-107); CO2 27 mmol/L (21-32); CREATININE 0.6 mg/dL (0.55-1.02); GLUCOSE,RANDOM 80 mg/dL (74-106); POTASSIUM 4.1 mmol/L (3.5-5.1); SODIUM 142 mmol/L (136-145)
--- NOTE | 2017-10-08 09:09 | PN ---
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 (short form) - Note 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: 77 year old female [place] Resident, History of Dementia, HTN, COPD, Hypothyroid, Schizophrenia, MDD. As per daughter patient develope dright sided spasticity and she was fine 2 week ago. Apparently she has advanced dementia, and mostly bed found. SHe is loosing weight , and daughter is not interested in peg tube placement. CT head done and there is no new findings. Her bun/creatinine was slightly raised. Patient was seen with daughter at bedside. Patient is eating semisolid food and able to drink liquid. afebrile and no acute distress She is alert and opens her eye and was able to whisper Patient was not able to follow command pupils reactive and no face asymmetry she is not moving her arm on command There is spasticity of right leg and arm notice There is no spasticity on left upper extremity and mild spasticity on left lower extremity SENSATion she withdraws to pain ct head is unchanged since last time Assessment- New onset right sided spasticity, It is less likley these symptoms came about in two weeks, most likey she has stroke . She has multiple commorbdity including Dementia, HTN, COPD, Hypothyroid, Schizophrenia, MDD. Failure to thrive, dehydration and UTI plan- baby aspirin and low dose of lipitor 10 mg can be added once she has swallwoing study , for stroke prevention 2. Suggest to speech /swallowing and PT 3. Continue supportive care Please feel free to call me if you have any question Heladio Conway MD
[2017-10-08] MEDS ORDERED: PT OWN MED DRAWER 7, Y5N ONE ×3 (09:59→20:56)
[2017-10-08] MEDS ORDERED: DEXTROSE 5%-WATER - 50 ML IVPB ONE (10:00)
[2017-10-08] MEDS ORDERED: cefTRIAXone SODIUM 1 GM VIAL ONE (10:00)
--- NOTE | 2017-10-08 10:01 | PN ---
Physical Exam: SUBJECTIVE: Patient seen and examined. She is non-verbal and appears comfortable laying in bed. OBJECTIVE: Vital Signs Period Temp Pulse Resp BP Sys/Jarquin Pulse Ox Last 24 Hr 96.9 F-99.7 F 74-90 20-20 125-138/44-60 94 GENERAL: The patient is awake, alert, and in no acute distress. LUNGS: Breath sounds equal, clear to auscultation bilaterally, no wheezes, no crackles, no accessory muscle use. HEART: Regular rate and rhythm, S1, S2 without murmur, rub or gallop. ABDOMEN: Soft, nondistended, normoactive bowel sounds, no guarding, no hepatosplenomegaly, no masses. EXTREMITIES: 2+ pulses, warm, well-perfused, no edema. NEUROLOGICAL: Non-verbal. No facial droop. Right hand contracted. Unable to follow commands. Laboratory Results - last 24 hr 10/08/17 10/08/17 06:00 06:00 WBC 3.7 L RBC 3.62 Hgb 11.0 Hct 32.9 MCV 90.9 MCH 30.5 MCHC 33.5 RDW 15.5 Plt Count 206 MPV 8.2 Sodium 142 Potassium 4.1 Chloride 108 H Carbon Dioxide 27 Anion Gap 7 L BUN 19 H Creatinine 0.6 Random Glucose 80 Calcium 8.9 Active Medications Generic Name Dose Route Start Last Admin Trade Name Miltonq PRN Reason Stop Dose Admin Heparin Sodium (Porcine) 5,000 unit 10/07/17 10:00 10/07/17 21:26 Heparin - SQ 5,000 unit BID ENRIQUE Administration Dextrose/Sodium Chloride 1,000 mls @ 42 mls/hr 10/07/17 02:30 10/08/17 05:15 D5-1/2ns - IV 42 mls/hr ASDIR ENRIQUE Administration Ceftriaxone Sodium 1 gm/ 50 mls @ 100 mls/hr 10/08/17 10:00 Dextrose IVPB DAILY [facility] Protocol ASSESSMENT/PLAN: 1. Possible recent CVA - Head CT shows moderate atrophy, periventricular chronic microvascular ischemic changes, no acute infarct - Start aspirin, Lipitor - Physical therapy, swallow eval 2. Acute kidney injury seconday to dehydration - Improved with IV fluid 3. UTI - Continue Rocephin - Follow-up urine culture 4. HTN - On no medication 5. Hypothyroidism - Restart Synthroid 6. COPD - Stable 7. Schizophrenia - Restart Zyprexa 8. Dementia Visit type - Emergency Visit Emergency Visit: Yes ED Registration Date: 10/07/17 Care time: The patient presented to the Emergency Department on the above date and was hospitalized for further evaluation of their emergent condition. - New Patient This patient is new to me today: Yes Date on this admission: 10/08/17 - Critical Care Critical Care patient: No - Discharge Referral Referred to [facility] Med P.C[facility] No
[2017-10-08] MEDS ORDERED: ACETAMINOPHEN 325 MG TABLET (FP) PO PRN (10:03)
[2017-10-08] MEDS: CEFTRIAXONE 1 GM in DEXTROSE 5%-WATER - 50 ML IVPB SCH (10:03)
[2017-10-08] MEDS: HEPARIN NA (PORCINE) 5,000 UNITS/ML 1ML VIAL SQ SCH ×3 (10:03→21:11)
[2017-10-08] MEDS ORDERED: LEVOTHYROXINE NA 200 MCG TABLET PO SCH (10:15)
[2017-10-08] MEDS: ASPIRIN 81 MG CHEWABLE TABLETS PO SCH (10:16)
[2017-10-08] MEDS: LORATADINE 10 MG TABLET PO SCH (10:17)
[2017-10-08] MEDS: RANITIDINE HCL 150 MG TABLET (FP) PO SCH ×2 (10:17→21:10)
[2017-10-08] MEDS: ATORVASTATIN CA 10 MG TABLET (FP) PO SCH (21:10)
[2017-10-08] MEDS: OLANZapine 2.5 MG TABLET PO SCH (21:11)
[2017-10-08] MEDS: SENNOSIDES 8.6MG TABLET (FP) PO SCH (21:11)
[2017-10-09] MEDS: LEVOTHYROXINE NA 100 MCG TABLET (FP) PO SCH (06:51)
[2017-10-09] MEDS: DEXTROSE 5%-0.45% SALINE 1,000 ML IV SCH ×2 (06:51→09:55)
--- NOTE | 2017-10-09 09:31 | PN ---
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, Physician - Current Medication List Current Medications: Active Medications Acetaminophen (Tylenol -) 650 mg PO Q6H PRN PRN Reason: FEVER Aspirin (Asa -) 81 mg PO DAILY [facility] Last Admin: 10/08/17 10:16 Dose: 81 mg Atorvastatin Calcium (Lipitor -) 10 mg PO HS [facility] Last Admin: 10/08/17 21:10 Dose: 10 mg Heparin Sodium (Porcine) (Heparin -) 5,000 unit SQ BID [facility] Last Admin: 10/08/17 21:11 Dose: 5,000 unit Dextrose/Sodium Chloride (D5-1/2ns -) 1,000 mls @ 42 mls/hr IV ASDIR [facility] Last Admin: 10/09/17 06:51 Dose: Not Given Ceftriaxone Sodium 1 gm/ (Dextrose) 50 mls @ 100 mls/hr IVPB DAILY [facility]; Protocol Last Admin: 10/08/17 10:03 Dose: 100 mls/hr Levothyroxine Sodium (Synthroid -) 200 mcg PO DAILY@0700 [facility] Last Admin: 10/09/17 06:51 Dose: 200 mcg Loratadine (Claritin -) 10 mg PO DAILY [facility] Last Admin: 10/08/17 10:17 Dose: 10 mg Olanzapine (Zyprexa -) 2.5 mg PO HS [facility] Last Admin: 10/08/17 21:11 Dose: 2.5 mg Ranitidine HCl (Zantac -) 150 mg PO BID [facility] Last Admin: 10/08/17 21:10 Dose: 150 mg Senna (Senna -) 1 tab PO HS [facility] Last Admin: 10/08/17 21:11 Dose: 1 tab - Objective Vital Signs: Vital Signs Temperature 97.2 F L 10/09/17 06:00 Pulse Rate 74 10/09/17 06:00 Respiratory Rate 18 10/09/17 06:00 Blood Pressure 139/60 10/09/17 06:00 O2 Sat by Pulse Oximetry (%) 95 10/08/17 21:00 Labs: CBC, BMP 10/08/17 06:00 10/08/17 06:00 INR, PTT INR 0.91 (0.82-1.09) 10/06/17 21:45 Problem List - Problems (1) Altered mental status, unspecified Assessment/Plan: - Possible recent CVA - Head CT shows moderate atrophy, periventricular chronic microvascular ischemic changes, no acute infarct - Start aspirin, Lipitor - Physical therapy, swallow eval Code(s): R41.82 - ALTERED MENTAL STATUS, UNSPECIFIED (2) Functional quadriplegia Code(s): R53.2 - FUNCTIONAL QUADRIPLEGIA (3) HTN (hypertension) Assessment/Plan: -monitor Code(s): I10 - ESSENTIAL (PRIMARY) HYPERTENSION (4) Schizophrenia Assessment/Plan: -on Zyprexa Code(s): F20.9 - SCHIZOPHRENIA, UNSPECIFIED (5) UTI (urinary tract infection) Assessment/Plan: -await culture - Continue Rocephin Code(s): N39.0 - URINARY TRACT INFECTION, SITE NOT SPECIFIED (6) LISSETTE (acute kidney injury) Assessment/Plan: - Improved with IV fluid -monitor Code(s): N17.9 - ACUTE KIDNEY FAILURE, UNSPECIFIED
[2017-10-09] MEDS ORDERED: DEXTROSE 5%-WATER - 50 ML IVPB ONE (09:35)
[2017-10-09] MEDS ORDERED: cefTRIAXone SODIUM 1 GM VIAL ONE (09:35)
[2017-10-09] MEDS: CEFTRIAXONE 1 GM in DEXTROSE 5%-WATER - 50 ML IVPB SCH (09:43)
[2017-10-09] MEDS: LORATADINE 10 MG TABLET PO SCH (09:44)
[2017-10-09] MEDS: RANITIDINE HCL 150 MG TABLET (FP) PO SCH ×2 (09:44→21:35)
[2017-10-09] MEDS: HEPARIN NA (PORCINE) 5,000 UNITS/ML 1ML VIAL SQ SCH ×2 (09:44→21:36)
[2017-10-09] MEDS: ASPIRIN 81 MG CHEWABLE TABLETS PO SCH (09:44)
--- NOTE | 2017-10-09 15:31 | PN ---
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 (short form) - Note 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: 77 year old female NH Resident, History of Dementia, HTN, COPD, Hypothyroid, Schizophrenia, MDD. As per daughter patient develope dright sided spasticity and she was fine 2 week ago. Apparently she has advanced dementia, and mostly bed found. SHe is loosing weight , and daughter is not interested in peg tube placement. CT head done and there is no new findings. Her bun/creatinine was slightly raised. Patient was seen with daughter at bedside. Patient is eating semisolid food and able to drink liquid. afebrile and no acute distress She is alert and opens her eye and was able to whisper pupils reactive and no face asymmetry she is not moving her arm on command There is spasticity of right leg and arm notice There is no spasticity on left upper extremity and mild spasticity on left lower extremity SENSATion she withdraws to pain There is right wrist drop ct head is unchanged since last time Assessment- 1 New onset right sided spasticity, likely to be lacunar stroke,It is less likley these symptoms came about in two weeks, most likey she has stroke more than two week old . She has multiple commorbdity including Dementia , HTN, COPD, Hypothyroid, Schizophrenia, MDD. Failure to thrive, dehydration and UTI plan- baby aspirin and low dose of lipitor 10 mg can be added once she has swallwoing study , for stroke prevention 2. Suggest to speech /swallowing and PT 3. PT for right wrist drop, may do emg as outpatient 4. Continue supportive care Please feel free to call me if you have any question Heladio Conway MD
[2017-10-09] MEDS ORDERED: PT OWN MED DRAWER 7, Y5N ONE (21:32)
[2017-10-09] MEDS: ATORVASTATIN CA 10 MG TABLET (FP) PO SCH (21:35)
[2017-10-09] MEDS: SENNOSIDES 8.6MG TABLET (FP) PO SCH (21:36)
[2017-10-09] MEDS: OLANZapine 2.5 MG TABLET PO SCH (21:36)
[2017-10-10] MEDS: LEVOTHYROXINE NA 100 MCG TABLET (FP) PO SCH (06:03)
--- NOTE | 2017-10-10 08:56 | PN ---
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, Physician - Current Medication List Current Medications: Active Medications Acetaminophen (Tylenol -) 650 mg PO Q6H PRN PRN Reason: FEVER Aspirin (Asa -) 81 mg PO DAILY [facility] Last Admin: 10/09/17 09:44 Dose: 81 mg Atorvastatin Calcium (Lipitor -) 10 mg PO HS [facility] Last Admin: 10/09/17 21:35 Dose: 10 mg Heparin Sodium (Porcine) (Heparin -) 5,000 unit SQ BID [facility] Last Admin: 10/09/17 21:36 Dose: 5,000 unit Dextrose/Sodium Chloride (D5-1/2ns -) 1,000 mls @ 42 mls/hr IV ASDIR [facility] Last Admin: 10/09/17 09:55 Dose: 42 mls/hr Ceftriaxone Sodium 1 gm/ (Dextrose) 50 mls @ 100 mls/hr IVPB DAILY [facility]; Protocol Last Admin: 10/09/17 09:43 Dose: 100 mls/hr Levothyroxine Sodium (Synthroid -) 200 mcg PO DAILY@0700 [facility] Last Admin: 10/10/17 06:03 Dose: 200 mcg Loratadine (Claritin -) 10 mg PO DAILY [facility] Last Admin: 10/09/17 09:44 Dose: 10 mg Olanzapine (Zyprexa -) 2.5 mg PO [facility] Last Admin: 10/09/17 21:36 Dose: 2.5 mg Ranitidine HCl (Zantac -) 150 mg PO BID [facility] Last Admin: 10/09/17 21:35 Dose: 150 mg Senna (Senna -) 1 tab PO [facility] Last Admin: 10/09/17 21:36 Dose: 1 tab - Objective Vital Signs: Vital Signs Temperature 99.3 F 10/10/17 04:00 Pulse Rate 99 H 10/10/17 04:00 Respiratory Rate 18 10/10/17 04:00 Blood Pressure 99/46 10/10/17 04:00 O2 Sat by Pulse Oximetry (%) 95 10/09/17 21:00 Cardiovascular: Yes: S1, S2 Respiratory: Yes: Regular, CTA Bilaterally Gastrointestinal: Yes: Normal Bowel Sounds, Soft Extremities: Yes: Other (contractures) Neurological: Yes: Confusion, Weakness Labs: CBC, BMP 10/08/17 06:00 10/08/17 06:00 INR, PTT INR 0.91 (0.82-1.09) 10/06/17 21:45 Problem List - Problems (1) Altered mental status, unspecified Assessment/Plan: - Possible recent CVA - Head CT shows moderate atrophy, periventricular chronic microvascular ischemic changes, no acute infarct - Start aspirin, Lipitor - Physical therapy, swallow eval Code(s): R41.82 - ALTERED MENTAL STATUS, UNSPECIFIED (2) Functional quadriplegia Assessment/Plan: -as above Code(s): R53.2 - FUNCTIONAL QUADRIPLEGIA (3) HTN (hypertension) Assessment/Plan: -monitor Code(s): I10 - ESSENTIAL (PRIMARY) HYPERTENSION (4) Schizophrenia Assessment/Plan: -on Zyprexa Code(s): F20.9 - SCHIZOPHRENIA, UNSPECIFIED (5) UTI (urinary tract infection) Assessment/Plan: -await culture - Continue Rocephin Code(s): N39.0 - URINARY TRACT INFECTION, SITE NOT SPECIFIED (6) LISSETTE (acute kidney injury) Assessment/Plan: - Improved with IV fluid -monitor Code(s): N17.9 - ACUTE KIDNEY FAILURE, UNSPECIFIED
[2017-10-10] MEDS ORDERED: cefTRIAXone SODIUM 1 GM VIAL ONE (09:37)
[2017-10-10] MEDS ORDERED: DEXTROSE 5%-WATER - 50 ML IVPB ONE (09:37)
[2017-10-10] MEDS: HEPARIN NA (PORCINE) 5,000 UNITS/ML 1ML VIAL SQ SCH ×2 (09:39→21:11)
[2017-10-10] MEDS: LORATADINE 10 MG TABLET PO SCH (09:39)
[2017-10-10] MEDS: RANITIDINE HCL 150 MG TABLET (FP) PO SCH ×2 (09:39→21:11)
[2017-10-10] MEDS: ASPIRIN 81 MG CHEWABLE TABLETS PO SCH (09:39)
[2017-10-10] MEDS: CEFTRIAXONE 1 GM in DEXTROSE 5%-WATER - 50 ML IVPB SCH (09:39)
--- NOTE | 2017-10-10 12:21 | CONSULT ---
Admitting History and Physical - Primary Care Physician PCP: Trey Loyd - Admission History of Present Illness: Per EMR: This is a 77 y/o woman from [facility] with a PMH HTN, Dementia, COPD, Hypothyroid , Schizophrenia, MDD, Aspiration. Who presents to the ED with right sided weakness/contracture, and weight loss. Per the daughter, the patient had full ROM of the right arm 2 weeks ago and now noted decrease ROM of the right hand and severe contracture. Per the daughter, the patient eats pureed food but is still losing weight. The daughter is not interested in PEG placement at this time. Patient unable to provide HPI secondary to Dementia. Neuro Assessment- 1 New onset right sided spasticity, likely to be lacunar stroke,It is less likley these symptoms came about in two weeks, most likey she has stroke more than two week old . She has multiple commorbdity including Dementia, HTN, COPD, Hypothyroid, Schizophrenia, MDD. Failure to thrive, dehydration and UTI Selected Entries 10/08/17 10/08/17 10/09/17 16:22 18:51 02:00 Breakfast 25% Lunch 25% Supper 25% Temperature 96.6 F L 10/09/17 10/09/17 10/09/17 06:00 10:18 16:30 Breakfast 75% Lunch Supper Temperature 97.2 F L 97.8 F 10/09/17 10/09/17 10/10/17 18:30 22:00 04:00 Breakfast Lunch Known to me from 2016- Supper 100% Temperature 98.2 F 99.3 F 10/10/17 10:00 Breakfast Lunch Supper Temperature 98.1 F Laboratory Tests 10/08/17 06:00 WBC 3.7 L Known to me from 2016-with meat impaction/mid esophageal diverticulum,admitted to r/o pneumonia. Puree and thin liquid rec at that time. 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 Cardiovascular: Yes: CAD ([facility] carcadi cath revealing mild CAD , no stents) Pulmonary: Yes: COPD, Other (left pneumothorax and likely hemothorax with rib fractures) Gastrointestinal: Yes: Other (esophageal food impaction, chart alludes to achalasia but [facility] cannot substantiate this) Endocrine: Yes: Hypothyroidism - Smoking History Smoking history: Former smoker Have you smoked in the past 12 months: No If you are a former smoker, when did you quit?: 2011 - Alcohol/Substance Use Hx Alcohol Use: No - Social History ADL: Family Assistance 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 Puree/thin liquid rec) - General Mental Status: Awake and Alert (intermittently lethargic), Confused, Flat Affect Attention: Distractible - Hearing Hearing: Normal Speech Evaluation - Communication Primary Language: YI Communication: Yes: Non-Communicable Oral Expression Ability: Yes: Non-Verbal, Non-Vocal - Speech Characteristics Articulation: Yes: Precise - Language/Auditory Comprehension Observation: Able to respond to yes/no queries: No - Language/Verbal Expression Able to Respond to Simple Queries: Yes: Severely Impaired Able to Communicate Wants and Needs: Yes: Severely Impaired Functional Communication Status: Yes: Severely Impaired - Swallow Evaluation/Bedside Assessment Current Nutritional Intake: Dysphagia Pureed, Petronila Textured Liquids Oral Secretions: Yes: WFL Dentition: Yes: Edentulous Facial Symmetry at Rest: Symmetrical Rate of Intake: Slow/Holding Bolus Size: Small Labial Seal: WFL Oral Prep Time: Increased A-P Transit: Impaired Timing of Swallow: Delayed Coughing/Throat Clear: No Change in Voice: No Recommendations - Speech Evaluation, Impression/Plan Impression: h/o impaction/mid esophageal diverticulum 2016. Non communicable. Oral holding witrh delayed swallow sec dementia. - Disposition [facility]charge to: [facility] - Dysphagia Impressions/Plan Swallowing Skills: Impaired Dysphagia Impressions: Mild Impairment *Silent aspiration: cannot be R/O at bedside Dysphagia Treatment Plan: Chin Tuck/Down, Safe Rate, 1/2 tsp. at a time, Elevate HOB during feed, Other (Upright after meals) - Recommendations Diet Consistency: Dysphagia Pureed Medication Administration: Crushed with applesauce Liquids: Petronila Thick Supplement: Magic Cup, Ensure Pudding, Other (Ensure compact)
[2017-10-10] MEDS: DEXTROSE 5%-0.45% SALINE 1,000 ML IV SCH (21:10)
[2017-10-10] MEDS: OLANZapine 2.5 MG TABLET PO SCH (21:11)
[2017-10-10] MEDS: ATORVASTATIN CA 10 MG TABLET (FP) PO SCH (21:11)
[2017-10-10] MEDS: SENNOSIDES 8.6MG TABLET (FP) PO SCH (21:11)
[2017-10-11] MEDS: DEXTROSE 5%-0.45% SALINE 1,000 ML IV SCH (04:29)
[2017-10-11] MEDS: LEVOTHYROXINE NA 100 MCG TABLET (FP) PO SCH (06:29)
--- NOTE | 2017-10-11 08:50 | DS ---
Physical Examination Vital Signs: Vital Signs Temperature 97.7 F 10/11/17 07:03 Pulse Rate 72 10/11/17 07:03 Respiratory Rate 20 10/11/17 07:03 Blood Pressure 128/58 10/11/17 07:03 O2 Sat by Pulse Oximetry (%) 95 10/10/17 21:00 Cardiovascular: Yes: S1, S2 Respiratory: Yes: Regular, CTA Bilaterally Gastrointestinal: Yes: Normal Bowel Sounds, Soft Neurological: Yes: Pre-Existing Deficit Labs: CBC, BMP 10/08/17 06:00 10/08/17 06:00 Discharge Summary Reason For Visit: URINARY TRACT INFECTION,AMS, FAILURE TO THRIVE Current Active Problems LISSETTE (acute kidney injury) (Acute) Altered mental status, unspecified (Acute) Cachexia (Acute) FTT (failure to thrive) in adult (Acute) Functional quadriplegia (Acute) HTN (hypertension) (Acute) Schizophrenia (Acute) UTI (urinary tract infection) (Acute) Hospital Course: This is a 77 y/o woman from [facility] with a PMH HTN, Dementia, COPD, Hypothyroid , Schizophrenia, MDD, Aspiration. Who presents to the ED with right sided weakness/contracture, and weight loss. Per the daughter, the patient had full ROM of the right arm 2 weeks ago and now noted decrease ROM of the right hand and severe contracture. Per the daughter, the patient eats pureed food but is still losing weight. The daughter is not interested in PEG placement at this time. Patient unable to provide HPI secondary to Dementia. ER course was notable for: (1) CT Brain- neg ICH, mass or lesion (2) LISSETTE- BUN 44, Cr 1.3 (3) UTI- +2 leukocyte esterase, 49 WBC (4) Albumin 2.8 Recent Travel: None PAST MEDICAL HISTORY: See HPI PAST SURGICAL HISTORY: Hip Replacement Knee Arthroscopy Social History: Smoking: Former Alcohol: None Drugs: None Resides in SNF, dependent - Problems (1) Altered mental status, unspecified Assessment/Plan: - Possible recent CVA - Head CT shows moderate atrophy, periventricular chronic microvascular ischemic changes, no acute infarct - Start aspirin, Lipitor - Physical therapy, - swallow eval noted Code(s): R41.82 - ALTERED MENTAL STATUS, UNSPECIFIED (2) Functional quadriplegia Assessment/Plan: -as above Code(s): R53.2 - FUNCTIONAL QUADRIPLEGIA (3) HTN (hypertension) Assessment/Plan: -monitor Code(s): I10 - ESSENTIAL (PRIMARY) HYPERTENSION (4) Schizophrenia Assessment/Plan: -on Zyprexa Code(s): F20.9 - SCHIZOPHRENIA, UNSPECIFIED (5) UTI (urinary tract infection) Assessment/Plan: -await culture - Continue Rocephin---to macrobid Code(s): N39.0 - URINARY TRACT INFECTION, SITE NOT SPECIFIED (6) LISSETTE (acute kidney injury) Assessment/Plan: - Improved with IV fluid--dc and monitor -monitor Code(s): N17.9 - ACUTE KIDNEY FAILURE, UNSPECIFIED Condition: Stable - Instructions - Home Medications Comprehensive Discharge Medication List: Ambulatory Orders Acetaminophen 650 mg PO Q6H PRN 08/16/17 Famotidine 20 mg PO BID 08/16/17 Heparin - 5,000 unit SQ BID 08/16/17 Levothyroxine [Synthroid -] 200 mcg PO DAILY 08/16/17 Loratadine [Claritin] 10 mg PO DAILY 08/16/17 Olanzapine 2.5 mg PO HS 08/16/17 Polyethylene Glycol 3350 [Gavilax] 17 gm PO BID 08/16/17 Sennosides [Senna Laxative] 17.2 mg PO HS 08/16/17 Guaifenesin [Mucinex] 600 mg PO BID PRN 10/07/17 Aspirin [ASA -] 81 mg PO DAILY tab.chew 10/11/17 Atorvastatin Ca [Lipitor] 10 mg PO HS tablet 10/11/17 Nitrofurantoin Macrocrystal [Nitrofurantoin] 100 mg PO BID #10 capsule 10/11/17
--- NOTE | 2017-10-11 10:35 | PN ---
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 Intermittent oral holding with delayed swallow onset. No overt signs of aspiration. Encourage supplements, as indicated.
[2017-10-11] MEDS ORDERED: cefTRIAXone SODIUM 1 GM VIAL ONE (10:40)
[2017-10-11] MEDS ORDERED: DEXTROSE 5%-WATER - 50 ML IVPB ONE (10:40)
[2017-10-11] MEDS: ASPIRIN 81 MG CHEWABLE TABLETS PO SCH (10:43)
[2017-10-11] MEDS: HEPARIN NA (PORCINE) 5,000 UNITS/ML 1ML VIAL SQ SCH ×2 (10:43→22:11)
[2017-10-11] MEDS: LORATADINE 10 MG TABLET PO SCH (10:43)
[2017-10-11] MEDS: CEFTRIAXONE 1 GM in DEXTROSE 5%-WATER - 50 ML IVPB SCH (10:43)
[2017-10-11] MEDS: RANITIDINE HCL 150 MG TABLET (FP) PO SCH ×2 (10:44→22:11)
[2017-10-11] MEDS ORDERED: PT OWN MED DRAWER 7, Y5N ONE ×3 (13:05→21:11)
--- NOTE | 2017-10-11 13:20 | EKG ---
Test Reason : Blood Pressure : / mmHG Vent. Rate : 089 BPM Atrial Rate : 089 BPM P-R Int : 134 ms QRS Dur : 112 ms QT Int : 354 ms P-R-T Axes : 089 098 079 degrees QTc Int : 430 ms SINUS RHYTHM WITH PREMATURE ATRIAL COMPLEXES RIGHT BUNDLE BRANCH BLOCK ABNORMAL ECG WHEN COMPARED WITH ECG OF 06-OCT-2017 20:21, PREMATURE ATRIAL COMPLEXES ARE NOW PRESENT CRITERIA FOR SEPTAL INFARCT ARE NO LONGER PRESENT Confirmed by KRUPA LAYTON MD ([id number]) on 10/11/2017 1:20:25 PM Referred By: Confirmed By:KRUPA LAYTON MD
[2017-10-11] MEDS: OLANZapine 2.5 MG TABLET PO SCH (22:11)
[2017-10-11] MEDS: ATORVASTATIN CA 10 MG TABLET (FP) PO SCH (22:11)
[2017-10-11] MEDS: SENNOSIDES 8.6MG TABLET (FP) PO SCH (22:11)
[2017-10-12] MEDS: LEVOTHYROXINE NA 100 MCG TABLET (FP) PO SCH (06:53)
--- NOTE | 2017-10-12 11:02 | PN ---
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, Physician Chief Complaint: patient seen and examined in bed non - Current Medication List Current Medications: Active Medications Acetaminophen (Tylenol -) 650 mg PO Q6H PRN PRN Reason: FEVER Aspirin (Asa -) 81 mg PO DAILY [facility] Last Admin: 10/11/17 10:43 Dose: 81 mg Atorvastatin Calcium (Lipitor -) 10 mg PO HS [facility] Last Admin: 10/11/17 22:11 Dose: 10 mg Heparin Sodium (Porcine) (Heparin -) 5,000 unit SQ BID [facility] Last Admin: 10/11/17 22:11 Dose: 5,000 unit Ceftriaxone Sodium 1 gm/ (Dextrose) 50 mls @ 100 mls/hr IVPB DAILY [facility]; Protocol Last Admin: 10/11/17 10:43 Dose: 100 mls/hr Levothyroxine Sodium (Synthroid -) 200 mcg PO DAILY@0700 [facility] Last Admin: 10/12/17 06:53 Dose: 200 mcg Loratadine (Claritin -) 10 mg PO DAILY [facility] Last Admin: 10/11/17 10:43 Dose: 10 mg Olanzapine (Zyprexa -) 2.5 mg PO [facility] Last Admin: 10/11/17 22:11 Dose: 2.5 mg Ranitidine HCl (Zantac -) 150 mg PO BID [facility] Last Admin: 10/11/17 22:11 Dose: 150 mg Senna (Senna -) 1 tab PO [facility] Last Admin: 10/11/17 22:11 Dose: 1 tab - Objective Vital Signs: Vital Signs Temperature 97.6 F 10/12/17 08:45 Pulse Rate 73 10/12/17 08:45 Respiratory Rate 18 10/12/17 08:45 Blood Pressure 125/67 10/12/17 08:45 O2 Sat by Pulse Oximetry (%) 96 10/11/17 21:00 Constitutional: Yes: Calm, Thin Cardiovascular: Yes: Regular Rate and Rhythm, S1, S2 Respiratory: Yes: Diminished Gastrointestinal: Yes: Normal Bowel Sounds, Soft Extremities: Yes: Other (contracted) Edema: No Neurological: Yes: Alert Labs: CBC, BMP 10/08/17 06:00 10/08/17 06:00 INR, PTT INR 0.91 (0.82-1.09) 10/06/17 21:45 Problem List - Problems (1) Altered mental status, unspecified Assessment/Plan: possible CVA CT head negative appreciate neurology note baby aspirin and lipitor dysphagia pureed diet nectar thick liquids Code(s): R41.82 - ALTERED MENTAL STATUS, UNSPECIFIED (2) Functional quadriplegia Assessment/Plan: limited mobility contracted,frequent turn and postioning- warrants the need for hospital bed at home Code(s): R53.2 - FUNCTIONAL QUADRIPLEGIA (3) HTN (hypertension) Assessment/Plan: BP is ok no need for anti-hypertensive meds at this time Code(s): I10 - ESSENTIAL (PRIMARY) HYPERTENSION (4) Schizophrenia Assessment/Plan: zyprexa Code(s): F20.9 - SCHIZOPHRENIA, UNSPECIFIED (5) UTI (urinary tract infection) Assessment/Plan: iv rocephin to nitrofurantoin 100mg po bid for 5 days Code(s): N39.0 - URINARY TRACT INFECTION, SITE NOT SPECIFIED (6) Hypothyroid Assessment/Plan: on synthroid Code(s): E03.9 - HYPOTHYROIDISM, UNSPECIFIED
--- NOTE | 2017-10-12 11:30 | PN ---
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: Selected Entries 10/10/17 10/10/17 10/10/17 04:00 08:35 10:00 Breakfast 50% Lunch Temperature 99.3 F 98.1 F 10/10/17 10/10/17 10/10/17 12:45 14:00 19:48 Breakfast Lunch 50% Temperature 98.3 F 98.6 F 10/11/17 10/11/17 01:00 07:03 Breakfast Lunch Temperature 97.8 F 97.7 F Laboratory Tests 10/08/17 06:00 WBC 3.7 L Selected Entries 10/11/17 10/11/17 10/11/17 01:00 07:03 11:30 Breakfast Lunch Supper Temperature 97.8 F 97.7 F 97.7 F 10/11/17 10/11/17 10/12/17 15:20 19:52 03:00 Breakfast 75% Lunch 50% Supper 100% Temperature 98.8 F 98.8 F 10/12/17 08:45 Breakfast Lunch Supper Temperature 97.6 F Pt tolerating dys pureed diet with [place] thick liquids. Intermittent oral holding with delayed swallow onset. No overt signs of aspiration. Encourage supplements, as indicated. No further f/u indicated at this time.
[2017-10-12] MEDS ORDERED: cefTRIAXone SODIUM 1 GM VIAL ONE (11:57)
[2017-10-12] MEDS ORDERED: DEXTROSE 5%-WATER - 50 ML IVPB ONE (11:57)
[2017-10-12] MEDS: RANITIDINE HCL 150 MG TABLET (FP) PO SCH (12:11)
[2017-10-12] MEDS: LORATADINE 10 MG TABLET PO SCH (12:11)
[2017-10-12] MEDS: ASPIRIN 81 MG CHEWABLE TABLETS PO SCH (12:11)
[2017-10-12] MEDS: HEPARIN NA (PORCINE) 5,000 UNITS/ML 1ML VIAL SQ SCH (12:11)
[2017-10-12 12:13] VITALS: BMI 17.9
[2017-10-12] MEDS: CEFTRIAXONE 1 GM in DEXTROSE 5%-WATER - 50 ML IVPB SCH (12:41)
[2017-10-12] MEDS ORDERED: NITROFURANTOIN MACROCRYSTAL 50 MG CAPSULE (FP) PO SCH (12:45)
[2017-10-12] MEDS ORDERED: AMOX TR/POT CLAV 500MG/125MG TABLETS (FP) PO SCH (17:30)
[2017-10-12 17:51] VITALS: BP 135/60; PULSE 78; TEMP 97.8
== END 2017-10-12 18:28 | DRG 64 ==
LOC: JER 19:24 → JERBED 10-07 01:54 → J8W 10-07 04:35
PROVIDERS: ADMIT Internal Medicine; ATTEND Family Medicine
DX: I63.9 Cerebral infarction, unspecified (principal); G93.41 Metabolic encephalopathy; R53.2 Functional quadriplegia; G92 Toxic encephalopathy; N17.9 Acute kidney failure, unspecified; N39.0 Urinary tract infection, site not specified; R64 Cachexia; Z68.1 Body mass index [BMI] 19.9 or less, adult; G81.91 Hemiplegia, unspecified affecting right dominant side; R62.7 Adult failure to thrive; E86.0 Dehydration; F03.90 Unspecified dementia, unspecified severity, without behavioral disturbance, psychotic disturbance, mood disturbance, and anxiety; I10 Essential (primary) hypertension; F20.9 Schizophrenia, unspecified; E03.9 Hypothyroidism, unspecified; R41.82 Altered mental status, unspecified; K21.9 Gastro-esophageal reflux disease without esophagitis
CPT/HCPCS: 36415; 70450-TC; 71045-TC-FY; 73110-TC-RT-FY; 80048; 80053; 81003; 81015; 82306; 82607; 82803; 83605; 83735; 84100; 84443; 84484; 85025; 85027; 85610; 85730; 87040; 87086; 87186; 93005; 93010; 97161-GP; 99283-25; J1644; J7030